=== PATIENT | female | born 1990 | race Caucasian/White ===

== ENCOUNTER 2019-01-30 10:43 | Emergency (ER) | payer OTHER ==
[2019-01-30] MEDS ORDERED: SODIUM CHLORIDE 0.9% 1,000 ML IV STA (11:21)
[2019-01-30] MEDS ORDERED: diphenhydrAMINE 50 MG/ML 1 ML VIAL IVP STA (11:21)
[2019-01-30] MEDS ORDERED: METOCLOPRAMIDE 5 MG/ML 2 ML VIAL IVP STA (11:21)
--- NOTE | 2019-01-30 11:33 | ED ---
General Adult HPI <Gene Barclay - Last Filed: 01/30/19 14:31> - General Source: patient, RN notes reviewed Mode of arrival: ambulatory Limitations: no limitations <Saul Laughlin - Last Filed: 01/30/19 14:40> - General Chief complaint: Headache Stated complaint: congestion, cough, headache, neck pain Time Seen by Provider: 01/30/19 11:02 - History of Present Illness Initial comments: 29-year-old female with a past medical history of fibromyalgia, migraines presents to the emergency department for multiple complaints. Patient states she developed a cough yesterday and today developed some sinus congestion. Patient also has a mild sore throat that started today. States that today she woke up with a headache. States it is across her frontal bone. Patient states she has a history of migraines but this does feel somewhat different. Rates her pain as a 7 out of 10. States she's also had pain that is down the middle of her neck as well as the sides of her neck and into her shoulders for the past 4 days. Denies fevers or chills. Denies nausea or vomiting. States that when she went to urgent care they were concerned about this and wanted her to be evaluated in the emergency department.Patient has no other complaints at this time including shortness of breath, chest pain, abdominal pain, nausea or vomiting, headache, or visual changes. (Saul Luaghlin) - Related Data Home Medications Medication Instructions Recorded Confirmed Ranitidine HCl [Zantac] 300 mg PO DAILY PRN 01/28/19 01/28/19 Allergies Allergy/AdvReac Type Severity Reaction Status Date / Time Pertussis Vaccines Allergy Unknown Verified 01/28/19 16:18 Childhood Review of Systems ROS Other: All systems not noted in ROS Statement are negative. <Gene Barclay - Last Filed: 01/30/19 14:31> ROS Other: All systems not noted in ROS Statement are negative. <Saul Laughlin - Last Filed: 01/30/19 14:40> ROS Statement: Those systems with pertinent positive or pertinent negative responses have been documented in the HPI. Past Medical History Past Medical History: Fibromyalgia, GERD/Reflux Additional Past Medical History / Comment(s): migraines, upset stomach when eating anything with gluten, History of Any Multi-Drug Resistant Organisms: MRSA Date of last positivie culture/infection: 2007 MDRO Source:: left arm Past Surgical History: Adenoidectomy, Orthopedic Surgery, Tonsillectomy Additional Past Surgical History / Comment(s): EGD, ORIF left ankle/later removal of hardware Past Anesthesia/Blood Transfusion Reactions: Motion Sickness Past Psychological History: Anxiety Smoking Status: Current every day smoker Past Alcohol Use History: Occasional Past Drug Use History: None Reported - Past Family History Mother Family Medical History: No Reported History <Saul Laughlin - Last Filed: 01/30/19 14:40> General Exam Limitations: no limitations General appearance: alert, in no apparent distress Head exam: Present: atraumatic, normocephalic, normal inspection Eye exam: Present: normal appearance, PERRL, EOMI. Absent: scleral icterus, conjunctival injection ENT exam: Present: normal exam, normal oropharynx, mucous membranes moist, TM's normal bilaterally, normal external ear exam Neck exam: Present: normal inspection, full ROM (full flexion/extension of that difficulty. Full lateral rotation of the neck bilaterally). Absent: tenderness, meningismus (Negative Kernig, negative Brudzinski), lymphadenopathy Respiratory exam: Present: normal lung sounds bilaterally. Absent: respiratory distress, wheezes, rales, rhonchi, stridor Cardiovascular Exam: Present: regular rate, normal rhythm, normal heart sounds. Absent: systolic murmur, diastolic murmur, rubs, gallop, clicks GI/Abdominal exam: Present: soft, normal bowel sounds. Absent: distended, tenderness, guarding, rebound, rigid Back exam: Absent: CVA tenderness (R), CVA tenderness (L) Neurological exam: Present: alert, oriented X3, CN II-XII intact, normal gait, other (GCS 15) <Saul Laughlin - Last Filed: 01/30/19 14:40> Course Vital Signs 01/30/19 01/30/19 10:59 14:07 Temperature 98.2 F 98.5 F Pulse Rate 89 74 Respiratory 22 16 Rate Blood Pressure 111/74 96/57 O2 Sat by Pulse 97 97 Oximetry Medical Decision Making - Lab Data Result diagrams: 01/30/19 11:25 01/30/19 11:25 <Gene Barclay - Last Filed: 01/30/19 14:31> - Lab Data Result diagrams: 01/30/19 11:25 01/30/19 11:25 <Saul Laughlin P - Last Filed: 01/30/19 14:40> - Medical Decision Making Patient reevaluated by myself, Dr. Barclay. Patient states she has had some discomfort in her neck for the past 3 days and headache today. Patient states headache is mild. Patient states neck discomfort is not that severe either. Patient has had some cough congestion and sore throat. No meningismus on exam. No pharyngeal erythema. No lymphadenopathy. No tenderness over the sinuses. Repeat temperature is 98.0. Patient is felt to be low suspicion for meningitis however was offered lumbar puncture for further evaluation. Patient refuses this and requests discharge home. Patient is agreeable to return if she has worsening symptoms or fevers. (Gene Barclay) Extensive evaluation was done in the emergency department. CBC was performed which shows a mild leukocytosis of 12. CMP unremarkable. Serum urinalysis does not show any obvious evidence of infection. Mild dehydration, patient was given fluids. Influenza and strep are negative. Chest x-ray shows a normal chest. CT brain shows no acute cranial abnormality. Patient was evaluated by Dr. Barclay as documented. Patient feeling better at this time will be discharged home. Likely viral syndrome given patient's cough sore throat and muscle aches and headache. (Saul Laughlin) - Lab Data Lab Results 01/30/19 01/30/19 01/30/19 Range/Units 11:25 11:25 11:25 WBC 12.0 H (3.8-10.6) k/uL RBC 4.48 (3.80-5.40) m/uL Hgb 14.4 (11.4-16.0) gm/dL Hct 41.0 (34.0-46.0) % MCV 91.4 (80.0-100.0) fL MCH 32.1 (25.0-35.0) pg MCHC 35.1 (31.0-37.0) g/dL RDW 12.7 (11.5-15.5) % Plt Count 345 (150-450) k/uL Neutrophils % 80 % Lymphocytes % 11 % Monocytes % 7 % Eosinophils % 1 % Basophils % 0 % Neutrophils # 9.6 H (1.3-7.7) k/uL Lymphocytes # 1.4 (1.0-4.8) k/uL Monocytes # 0.8 (0-1.0) k/uL Eosinophils # 0.1 (0-0.7) k/uL Basophils # 0.0 (0-0.2) k/uL PT (9.0-12.0) sec INR (<1.2) APTT (22.0-30.0) sec Sodium (137-145) mmol/L Potassium (3.5-5.1) mmol/L Chloride (98-107) mmol/L Carbon Dioxide (22-30) mmol/L Anion Gap mmol/L BUN (7-17) mg/dL Creatinine (0.52-1.04) mg/dL Est GFR (CKD-EPI)AfAm (>60 ml/min/1.73 sqM) Est GFR (CKD-EPI)NonAf (>60 ml/min/1.73 sqM) Glucose (74-99) mg/dL Plasma Lactic Acid Nic (0.7-2.0) mmol/L Calcium (8.4-10.2) mg/dL Total Bilirubin (0.2-1.3) mg/dL AST (14-36) U/L ALT (9-52) U/L Alkaline Phosphatase (38-126) U/L Total Protein (6.3-8.2) g/dL Albumin (3.5-5.0) g/dL Urine Color Urine Appearance (Clear) Urine pH (5.0-8.0) Ur Specific [place] (1.001-1.035) Urine Protein (Negative) Urine Glucose (UA) (Negative) Urine Ketones (Negative) Urine Blood (Negative) Urine Nitrite (Negative) Urine Bilirubin (Negative) Urine Urobilinogen (<2.0) mg/dL Ur Leukocyte Esterase (Negative) Urine WBC (0-5) /hpf Ur Squamous Epith Cells (0-4) /hpf Amorphous Sediment (None) /hpf Urine Bacteria (None) /hpf Urine Mucus (None) /hpf Urine HCG, Qual (Not Detectd) Influenza Type A RNA Not Detected (Not Detectd) Influenza Type B (PCR) Not Detected (Not Detectd) Group A Strep Rapid Negative (Negative) 01/30/19 01/30/19 01/30/19 Range/Units 11:25 11:25 11:25 WBC (3.8-10.6) k/uL RBC (3.80-5.40) m/uL Hgb (11.4-16.0) gm/dL Hct (34.0-46.0) % MCV (80.0-100.0) fL MCH (25.0-35.0) pg MCHC (31.0-37.0) g/dL RDW (11.5-15.5) % Plt Count (150-450) k/uL Neutrophils % % Lymphocytes % % Monocytes % % Eosinophils % % Basophils % % Neutrophils # (1.3-7.7) k/uL Lymphocytes # (1.0-4.8) k/uL Monocytes # (0-1.0) k/uL Eosinophils # (0-0.7) k/uL Basophils # (0-0.2) k/uL PT 11.2 (9.0-12.0) sec INR 1.1 (<1.2) APTT 24.5 (22.0-30.0) sec Sodium 139 (137-145) mmol/L Potassium 4.6 (3.5-5.1) mmol/L Chloride 108 H (98-107) mmol/L Carbon Dioxide 21 L (22-30) mmol/L Anion Gap 10 mmol/L BUN 13 (7-17) mg/dL Creatinine 0.62 (0.52-1.04) mg/dL Est GFR (CKD-EPI)AfAm >90 (>60 ml/min/1.73 sqM) Est GFR (CKD-EPI)NonAf >90 (>60 ml/min/1.73 sqM) Glucose 96 (74-99) mg/dL Plasma Lactic Acid Nic 0.6 L (0.7-2.0) mmol/L Calcium 9.7 (8.4-10.2) mg/dL Total Bilirubin 0.6 (0.2-1.3) mg/dL AST 23 (14-36) U/L ALT 22 (9-52) U/L Alkaline Phosphatase 116 (38-126) U/L Total Protein 7.6 (6.3-8.2) g/dL Albumin 4.5 (3.5-5.0) g/dL Urine Color Urine Appearance (Clear) Urine pH (5.0-8.0) Ur Specific [place] (1.001-1.035) Urine Protein (Negative) Urine Glucose (UA) (Negative) Urine Ketones (Negative) Urine Blood (Negative) Urine Nitrite (Negative) Urine Bilirubin (Negative) Urine Urobilinogen (<2.0) mg/dL Ur Leukocyte Esterase (Negative) Urine WBC (0-5) /hpf Ur Squamous Epith Cells (0-4) /hpf Amorphous Sediment (None) /hpf Urine Bacteria (None) /hpf Urine Mucus (None) /hpf Urine HCG, Qual (Not Detectd) Influenza Type A RNA (Not Detectd) Influenza Type B (PCR) (Not Detectd) Group A Strep Rapid (Negative) 01/30/19 01/30/19 Range/Units 11:30 11:30 WBC (3.8-10.6) k/uL RBC (3.80-5.40) m/uL Hgb (11.4-16.0) gm/dL Hct (34.0-46.0) % MCV (80.0-100.0) fL MCH (25.0-35.0) pg MCHC (31.0-37.0) g/dL RDW (11.5-15.5) % Plt Count (150-450) k/uL Neutrophils % % Lymphocytes % % Monocytes % % Eosinophils % % Basophils % % Neutrophils # (1.3-7.7) k/uL Lymphocytes # (1.0-4.8) k/uL Monocytes # (0-1.0) k/uL Eosinophils # (0-0.7) k/uL Basophils # (0-0.2) k/uL PT (9.0-12.0) sec INR (<1.2) APTT (22.0-30.0) sec Sodium (137-145) mmol/L Potassium (3.5-5.1) mmol/L Chloride (98-107) mmol/L Carbon Dioxide (22-30) mmol/L Anion Gap mmol/L BUN (7-17) mg/dL Creatinine (0.52-1.04) mg/dL Est GFR (CKD-EPI)AfAm (>60 ml/min/1.73 sqM) Est GFR (CKD-EPI)NonAf (>60 ml/min/1.73 sqM) Glucose (74-99) mg/dL Plasma Lactic Acid Nic (0.7-2.0) mmol/L Calcium (8.4-10.2) mg/dL Total Bilirubin (0.2-1.3) mg/dL AST (14-36) U/L ALT (9-52) U/L Alkaline Phosphatase (38-126) U/L Total Protein (6.3-8.2) g/dL Albumin (3.5-5.0) g/dL Urine Color Yellow Urine Appearance Cloudy H (Clear) Urine pH 5.0 (5.0-8.0) Ur Specific [place] 1.028 (1.001-1.035) Urine Protein Trace H (Negative) Urine Glucose (UA) Negative (Negative) Urine Ketones Trace H (Negative) Urine Blood Small H (Negative) Urine Nitrite Negative (Negative) Urine Bilirubin Negative (Negative) Urine Urobilinogen <2.0 (<2.0) mg/dL Ur Leukocyte Esterase Trace H (Negative) Urine WBC 4 (0-5) /hpf Ur Squamous Epith Cells 4 (0-4) /hpf Amorphous Sediment Few H (None) /hpf Urine Bacteria Occasional H (None) /hpf Urine Mucus Few H (None) /hpf Urine HCG, Qual Not Detected (Not Detectd) Influenza Type A RNA (Not Detectd) Influenza Type B (PCR) (Not Detectd) Group A Strep Rapid (Negative) Disposition <Gene Barclay - Last Filed: 01/30/19 14:31> Is patient prescribed a controlled substance at d/c from ED?: No Time of Disposition: 14:40 <Saul Laughlin - Last Filed: 01/30/19 14:40> Clinical Impression: Headache, Viral syndrome Disposition: HOME SELF-CARE Condition: Good Instructions (If sedation given, give patient instructions): Acute Headache (ED) Additional Instructions: Please follow up with primary care in 1-2 days. Return to the emergency de partment if you have any worsening symptoms. Referrals: Ismael Rodríguez MD [Primary Care Provider] - 1-2 days
[2019-01-30 11:55] LABS: ALT 22 U/L (9-52); AST 23 U/L (14-36); African American GFR (CKD) >90 (>60 ml/min/1.73 sqM); Albumin 4.5 g/dL (3.5-5.0); Alkaline Phosphatase 116 U/L (38-126); Anion Gap 10 mmol/L; Blood Urea Nitrogen 13 mg/dL (7-17); Calcium 9.7 mg/dL (8.4-10.2); Carbon Dioxide 21 mmol/L (22-30); Chloride 108 mmol/L (98-107); Glucose 96 mg/dL (74-99); Potassium 4.6 mmol/L (3.5-5.1); Sodium 139 mmol/L (137-145); Total Bilirubin 0.6 mg/dL (0.2-1.3); Total Protein 7.6 g/dL (6.3-8.2)
[2019-01-30 11:56] LABS: INR 1.1 (<1.2); Partial Thromboplastin Time 24.5 sec (22.0-30.0); Prothrombin Time 11.2 sec (9.0-12.0)
[2019-01-30 11:58] LABS: Basophils % (A) 0 %; Eosinophils # (A) 0.1 k/uL (0-0.7); Eosinophils % (A) 1 %; HGB 14.4 gm/dL (11.4-16.0); Lymphocytes # (A) 1.4 k/uL (1.0-4.8); Lymphocytes % (A) 11 %; MCH 32.1 pg (25.0-35.0); MCHC 35.1 g/dL (31.0-37.0); MCV 91.4 fL (80.0-100.0); Monocytes # (A) 0.8 k/uL (0-1.0); Monocytes % (A) 7 %; Neutrophils # (A) 9.6 k/uL (1.3-7.7); Neutrophils % (A) 80 %; Platelet Count 345 k/uL (150-450); RBC 4.48 m/uL (3.80-5.40); RDW 12.7 % (11.5-15.5)
[2019-01-30 11:59] LABS: Amorphous Sediment,Urine Few /hpf; Appearance,Urine Cloudy (Clear); Bacteria,Urine Occasional /hpf; Bilirubin,Urine Negative (Negative); Blood,Urine Small (Negative); Color,Urine Yellow; Glucose,Urine (UA) Negative (Negative); Ketones,Urine Trace (Negative); Leukocyte Esterase,Urine Trace (Negative); Mucus,Urine Few /hpf; Nitrite,Urine Negative (Negative); Protein,Urine Trace (Negative); Specific Gravity,Urine 1.028 (1.001-1.035); Squamous Epithelial Cell,Urine 4 /hpf (0-4); Urobilinogen,Urine <2.0 mg/dL (<2.0); WBC,Urine 4 /hpf (0-5)
--- NOTE | 2019-01-30 12:42 | CT ---
EXAMINATION TYPE: CT brain wo con DATE OF EXAM: 01/30/2019 COMPARISON: NONE HISTORY: TENA, congestion, cough, neck pain CT DLP: 1062.4 mGycm Automated exposure control for dose reduction was used. FINDINGS: Central structures are midline. There is no evidence of hydrocephalus. No acute focal lesion, mass ef fect or midline shift is seen. I do not see evidence of intracranial blood. Visualized portions of th e paranasal sinuses and mastoids are clear. The bony calvarium is intact. IMPRESSION: NO ACUTE INTRACRANIAL ABNORMALITY.
--- NOTE | 2019-01-30 13:31 | XR ---
EXAMINATION TYPE: XR chest 2V DATE OF EXAM ORDERED: 01/30/2019 HISTORY: cough. REFERENCE: None. FINDINGS: The lungs are clear. Pleural spaces are clear. Heart size is normal. IMPRESSION: NORMAL CHEST.
[2019-01-30 14:08] VITALS: BP 96/57; PULSE 74; RESP 16; TEMP 98.5
== END 2019-01-30 14:50 | disposition home or self-care (01) ==
LOC: EC 10:43
DX: B34.9 Viral infection, unspecified (principal); E86.0 Dehydration; M54.2 Cervicalgia; F17.200 Nicotine dependence, unspecified, uncomplicated; Z86.14 Personal history of Methicillin resistant Staphylococcus aureus infection; Z86.69 Personal history of other diseases of the nervous system and sense organs; Z53.29 Procedure and treatment not carried out because of patient's decision for other reasons; Z88.7 Allergy status to serum and vaccine
CPT/HCPCS: 36415; 80053; 83605; 85025; 85610; 85730; 81001; 81025; 87081; 87430; 87502; 71046; 70450; 99284; 96374; 96375; 96361 ×2; J1200; J2765

== ENCOUNTER 2019-02-02 08:41 | Day surgery (SDC) | payer OTHER ==
[2019-01-28 16:27] VITALS: BMI 30.6
[~2019-02-02 08:41] MED LIST: LACTATED RINGERS 1,000 ML IV SCH; LIDOCAINE 1% 20 ML VIAL (10MG/ML) FOR IV START INTRADERMA PRN
[2019-02-02] MEDS ORDERED: GLYCOPYRROLATE 0.2 MG/ML 2 ML VIAL ONE (09:21)
[2019-02-02] MEDS ORDERED: MIDAZOLAM 2 MG/2 ML VIAL ONE (09:21)
[2019-02-02] MEDS ORDERED: LIDOCAINE 1% INJ 10MG/ML (20 ML MDV) ONE (09:21)
[2019-02-02] MEDS ORDERED: PROPOFOL 10 MG/ML 20 ML VIAL IV ONE (09:21)
[2019-02-02 09:23] VITALS: TEMP 97
--- NOTE | 2019-02-02 09:48 | P.PCN ---
Date of Procedure: 02/02/19 Description of Procedure: BRIEF HISTORY: Patient is a 29-year-old, pleasant, female with GERD. She presents for outpatient EGD for further evaluation. Currently the patient is on ranitidine. She reports a prior history of esophageal tear. PROCEDURE PERFORMED: Esophagogastroduodenoscopy with biopsy. PREOPERATIVE DIAGNOSIS: GERD. ESTIMATED BLOOD LOSS: Minimal. IV sedation per anesthesia. PROCEDURE: After informed consent was obtained, the patient was brought into the endoscopy unit. IV sedation was administered by Anesthesia under continuous monitoring. Initially the Olympus GIF-190 video endoscope was inserted into the mouth. Esophagus intubated without any difficulty. It was gradually advanced into the stomach and duodenum and carefully examined. The bulb and the second part of the duodenum appeared normal, with biopsy. The scope at this time was withdrawn to the stomach, adequately insufflated with air, and upon careful examination, mucosa of the antrum, body, cardia and the fundus appeared normal except for some mild scattered erythema in the antrum and body suggestive of mild gastritis with biopsies. The scope was then withdrawn into the esophagus. The GE junction was located at 37 cm from the incisors, biopsied. The esophagus appeared normal. There were no erosions or ulcerations seen and the patient tolerated the procedure well. IMPRESSION: 1. Mild gastritis antrum and body, biopsied. 2. Biopsies of the duodenum and GE junction. RECOMMENDATIONS: The findings of this examination were discussed with the patient and her grandmother. Await pathology from biopsies. Continue ranitidine therapy.
[2019-02-02 10:10] VITALS: BP 112/67; PULSE 67; RESP 18
== END 2019-02-02 10:31 | disposition home or self-care (01) ==
LOC: ORWHC2ENDO 08:41
PROVIDERS: ATTEND Internal Medicine
DX: K21.9 Gastro-esophageal reflux disease without esophagitis (principal); K29.70 Gastritis, unspecified, without bleeding; B96.81 Helicobacter pylori [H. pylori] as the cause of diseases classified elsewhere; Z72.0 Tobacco use; Z88.7 Allergy status to serum and vaccine; Z79.899 Other long term (current) drug therapy
CPT/HCPCS: 43239; 81025; 88305; 88342; J2250; J2001; J2704

== ENCOUNTER → 2019-03-04 | Outpatient (CLI) | payer OTHER ==
[2019-03-04 11:42] VITALS: BP 104/70; PULSE 62; RESP 16; TEMP 98.2; BMI 29.9
--- NOTE | 2019-03-04 12:22 | P.GSHP ---
History of Present Illness H&P Date: 03/04/19 Chief Complaint: breast pain and yeast infection Ingrid is a 29-year-old white female who presents for breast evaluation. At times she has pain in her breast however her breasts are extremely large 36G and she also has pain in her back. The patient denies any nipple discharge or skin changes. The tenderness is related to jostling of the breast, it is not cyclical in nature. It does not radiate. She is not complaining of any nipple discharge. The patient gets shoulder divots from her bra secondary to the weight of her breast. She also complains of pain in her back it occurs in the mid thoracic region throughout her lower back. The patient states that she started wearing training process when she was 6 years old. By the time she was in the scleral she had a 32 mL, and in ninth grade she had a 34F. Her maternity bra was at 38J. She has not noted any lumps or masses in her breasts. She has not had a mammogram and ultrasound performed. She drinks 2 cups of coffee/day. She does not eat much chocolate. She smokes 1/2 PPD. Family history: maternal grandmother: Breast cancer maternal grandfather: cancer? type paternal grandfather: lymphoma paternal grandmother: cancer ?type Hormonal history: Menarche: 7 , first at 27, breast fed: yes periods regular BCP: 2 years hormones: none Past surgical history: 1. left ankle 2. tonsil and adenoids Medical History: H pylori Social History: smoke: 1/2 PPD for 16 years alcohol: 3 times/week drugs: none - Constitutional Constitutional: Reports sweats - EENT Eyes: denies blurred vision, denies pain Ears: deny: decreased hearing, tinnitus Ears, nose, mouth and throat: Denies headache, Denies sore throat - Breasts Breasts: bilateral: as per HPI - Cardiovascular Cardiovascular: Denies chest pain, Denies shortness of breath - Respiratory Respiratory: Denies cough, Denies 7 - Gastrointestinal Gastrointestinal: Denies abdominal pain, Denies diarrhea, Denies nausea, Denies vomiting - Genitourinary (Female) Genitourinary: Denies dysuria, Denies hematuria - Menstruation Menstruation: Reports period normal - Musculoskeletal Comment: gluetal pain Musculoskeletal: Reports myalgias - Integumentary Integumentary: Denies pruritus, Denies rash - Neurological Comment: sciatic pain - Psychiatric Psychiatric: Reports anxiety - Endocrine Endocrine: Reports weight change - Hematologic/Lymphatic Comment: none - Allergic/Immunologic Allergic/Immunologic: Reports as per HPI Past Medical History Past Medical History: Fibromyalgia, GERD/Reflux Additional Past Medical History / Comment(s): migraines, upset stomach when eating anything with gluten, History of Any Multi-Drug Resistant Organisms: MRSA Date of last positivie culture/infection: 2007 MDRO Source:: left arm Past Surgical History: Adenoidectomy, Orthopedic Surgery, Tonsillectomy Additional Past Surgical History / Comment(s): EGD, ORIF left ankle/later removal of hardware Past Anesthesia/Blood Transfusion Reactions: Motion Sickness Past Psychological History: Anxiety Smoking Status: Current every day smoker Past Alcohol Use History: Occasional Additional Past Alcohol Use History / Comment(s): smokes 1/2 PPD , has smoked for 15 yrs Past Drug Use History: None Reported - Past Family History Mother Family Medical History: No Reported History Medications and Allergies Home Medications Medication Instructions Recorded Confirmed Type Omeprazole 40 mg PO DAILY 03/04/19 03/04/19 History Allergies Allergy/AdvReac Type Severity Reaction Status Date / Time Pertussis Vaccines Allergy Unknown Verified 03/04/19 11:42 Childhood Surgical - Exam Vital Signs Temp Pulse Resp BP Pulse Ox 98.2 F 62 16 104/70 93 L 03/04/19 11:37 03/04/19 11:37 03/04/19 11:37 03/04/19 11:37 03/04/19 11:37 BMI 30 - General well developed, well nourished, no distress - Eyes normal ocular movement - ENT no hearing loss, no congestion - Neck no masses, trachea midline, no lymphadectomy - Respiratory normal respiratory effort, clear to auscultation - Cardiovascular Rhythm: regular Heart Sounds: normal: S1, S2 - Abdomen Abdomen: soft, non tender, no guarding, no rigid, no rebound - Integumentary normal turgor multiple tattoos - Neurologic no disoriented, no combative - Musculoskeletal normal gait, normal posture - Psychiatric oriented to time, oriented to person, oriented to place, speech is normal, memory intact Breast examination: 36G Right breast: Multi-positional exam fibrocystic changes, no discrete dominant masses or nodules of concern Right axilla: No adenopathy of concern Left breast: Multi-positional exam fibrocystic changes, no discrete dominant masses or nodules of concern Left axilla: No adenopathy of concern Assessment and Plan Assessment: Impression: 1. Macromastia 2. Intermittent mastodynia 3. Back pain 4. Shoulder notching 5. Nicotine dependence 6. Family history of cancer 7. Recent treatment for H. pylori Plan: 1. bilateral mammogram 2. counselled to stop smoking 3. Recommend good support bra for back pain 4. We will consider referral to plastic surgery if mammogram is normal 5. Intermittent breast discomfort related to fibrocystic disease can be helped by stopping smoking and avoiding caffeine we have discussed this and the patient will consider cutting back. 6. Patient will consider weight loss related to possibility of having breast surgery reduction CC: Becka DUMONT, Dr. Rodríguez
== END | disposition home or self-care (01) ==
LOC: WWCWWP 11:02
PROVIDERS: ATTEND Surgery
DX: Z53.9 Procedure and treatment not carried out, unspecified reason (principal)

== ENCOUNTER → 2019-04-02 | Outpatient (CLI) | payer OTHER ==
--- NOTE | 2019-04-02 11:53 | MM ---
Reason for exam: screening (asymptomatic). Baseline mammogram. History: Family history of breast cancer in maternal grandmother at age 48. Physical Findings: Nurse did not find any significant physical abnormalities on exam. MG Screening Mammo w CAD Bilateral CC and MLO view(s) were taken. The breast tissue is extremely dense which could obscure a lesion on mammography. There is no discrete abnormality. These results were verbally communicated with the patient and result sheet given to the patient on 04/02/19. ASSESSMENT: Negative, BI-RAD 1 RECOMMENDATION: Routine screening mammogram of both breasts at age 38.
== END ==
LOC: RADMAMWWP 10:58
PROVIDERS: ATTEND Surgery
DX: Z12.31 Encounter for screening mammogram for malignant neoplasm of breast (principal)
CPT/HCPCS: 77067

== ENCOUNTER → 2020-01-14 | Outpatient (CLI) | payer OTHER ==
--- NOTE | 2020-01-14 12:05 | NM ---
EXAMINATION TYPE: NM bone 3 phase DATE OF EXAM: 01/14/2020 COMPARISON: No plain film supplied for correlation. HISTORY: Right foot pain, M 79.671 Triple phase bone scintigraphy was performed following the injection of 24.0 mCi Tc 99m MDP. Immedia te images and 4 hours post injection images acquired. FINDINGS: There is increased blood flow and blood pool activity at the right midfoot. Delayed imaging also show s abnormal activity at this level. IMPRESSION: Correlate for history of trauma, possible infection involving the right midfoot. Correlate with addit ional imaging.
== END | disposition home or self-care (01) ==
LOC: RADNMMAIN 07:14
PROVIDERS: ATTEND Family Medicine
DX: M79.671 Pain in right foot (principal)
CPT/HCPCS: 78315; A9503

== ENCOUNTER 2020-12-03 12:10 | Emergency (ER) | payer OTHER ==
[2020-12-03 12:14] VITALS: RESP 16
[2020-12-03] MEDS ORDERED: SODIUM CHLORIDE 0.9% 1,000 ML IV STA (12:34)
[2020-12-03] MEDS ORDERED: MAG HYDROX/AL HYDROX/SIMETH 30 ML, HYOSCYAMINE ELIXIR 10 ML, LIDOCAINE VISCOUS 2% 10 ML PO STA ×3 (12:35)
--- NOTE | 2020-12-03 12:37 | ED ---
General Adult HPI - General Chief complaint: Abdominal Pain Stated complaint: vomiting blood Time Seen by Provider: 12/03/20 12:15 Source: patient Mode of arrival: ambulatory Limitations: no limitations - History of Present Illness Initial comments: Dictation was produced using [employer] dictation software. please excuse any grammatical, word or spelling errors. Chief Complaint: 30-year-old female presents with epigastric pain History of Present Illness: 30-year-old female she has past medical history of gastritis and Victoria-Anders tear. She presents to the emergency Department with emesis and epigastric pain. She woke this morning with the symptoms. Patient states several months ago she had a upper endoscopy that showed a tear in her esophagus and gastritis. She was prescribed omeprazole. She has had omeprazole in several weeks. Last night she had 5 ounces of whiskey and immediately began to feel some epigastric pain. She had multiple bouts of emesis. States that she noticed that some of her emesis was brown. She is concerned that perhaps the brown coloration reflected GI bleed. She feels dehydrated. She was not able to make it to work today and states that she would like a work note to confirm that she came to get medical evaluation. The ROS documented in this emergency department record has been reviewed and confirmed by me. Those systems with pertinent positive or negative responses have been documented in the HPI. All other systems are other negative and/or noncontributory. PHYSICAL EXAM: General Impression: Alert and oriented x3, not in acute distress HEENT: Normocephalic atraumatic, extra-ocular movements intact, pupils equal and reactive to light bilaterally, mucous membranes moist. Cardiovascular: Heart regular rate and rhythm Chest: Able to complete full sentences, no retractions, no tachypnea Abdomen: abdomen soft, non-tender, non-distended, no organomegaly Musculoskeletal: Pulses present and equal in all extremities, no peripheral edema Motor: no focal deficits noted Neurological: CN II-XII grossly intact, no focal motor or sensory deficits noted Skin: Intact with no visualized rashes Psych: Normal affect and mood ED course: 30-year-old well-appearing female presents emergency department for epigastric pain and concerns of bloody emesis. vital signs upon arrival are within acceptable limits per she describes her emesis as watery and brown. She denies that it was black or blood. Return evaluation obtained. CBC, coag panel, metabolic panel is unremarkable. Urine hCG is negative. Chest x-ray and acute abdominal series x-ray shows no acute processes. Patient reevaluated at bedside at 1:30 PM found to be in stable medical condition. She states that the GI cocktail dramatically improved her symptoms. Clinical presentation consistent with gastritis. Patient given prescription for Protonix. She is told to follow-up with gastroenterology on an outpatient basis. Gastritis precautions were explained to patient. EKG interpretation: Ventricular rate 74, normal sinus rhythm, VT interval 126, QRS 94, QTC 437. No VT prolongation, no QTC prolongation, no ST or T-wave changes noted. Overall, this EKG is unremarkable - Related Data Home Medications Medication Instructions Recorded Confirmed Omeprazole 40 mg PO DAILY 03/04/19 03/04/19 Previous Rx's Medication Instructions Recorded Omeprazole 40 mg PO DAILY #24 capsule. 12/03/20 Allergies Allergy/AdvReac Type Severity Reaction Status Date / Time Pertussis Vaccines Allergy Unknown Verified 12/03/20 12:14 Childhood Review of Systems ROS Statement: Those systems with pertinent positive or pertinent negative responses have been documented in the HPI. ROS Other: All systems not noted in ROS Statement are negative. Past Medical History Past Medical History: Fibromyalgia, GERD/Reflux Additional Past Medical History / Comment(s): migraines, upset stomach when eating anything with gluten, History of Any Multi-Drug Resistant Organisms: MRSA Date of last positivie culture/infection: 2007 MDRO Source:: left arm Past Surgical History: Adenoidectomy, Orthopedic Surgery, Tonsillectomy Additional Past Surgical History / Comment(s): EGD, ORIF left ankle/later removal of hardware Past Anesthesia/Blood Transfusion Reactions: Motion Sickness Past Psychological History: Anxiety Smoking Status: Current every day smoker Past Alcohol Use History: Occasional Past Drug Use History: None Reported - Past Family History Mother Family Medical History: No Reported History General Exam Limitations: no limitations Course Vital Signs 12/03/20 12:12 Temperature 98.2 F Pulse Rate 97 Respiratory 16 Rate O2 Sat by Pulse 99 Oximetry Medical Decision Making - Lab Data Result diagrams: 12/03/20 12:30 12/03/20 12:30 Lab Results 12/03/20 12/03/20 12/03/20 Range/Units 12:30 12:30 12:30 WBC 12.4 H (3.8-10.6) k/uL RBC 4.57 (3.80-5.40) m/uL Hgb 15.1 (11.4-16.0) gm/dL Hct 43.7 (34.0-46.0) % MCV 95.7 (80.0-100.0) fL MCH 33.0 (25.0-35.0) pg MCHC 34.5 (31.0-37.0) g/dL RDW 12.3 (11.5-15.5) % Plt Count 331 (150-450) k/uL MPV 7.4 Neutrophils % 84 % Lymphocytes % 12 % Monocytes % 3 % Eosinophils % 0 % Basophils % 0 % Neutrophils # 10.3 H (1.3-7.7) k/uL Lymphocytes # 1.5 (1.0-4.8) k/uL Monocytes # 0.4 (0-1.0) k/uL Eosinophils # 0.1 (0-0.7) k/uL Basophils # 0.0 (0-0.2) k/uL PT 11.4 (9.0-12.0) sec INR 1.1 (<1.2) APTT 23.4 (22.0-30.0) sec Sodium (137-145) mmol/L Potassium (3.5-5.1) mmol/L Chloride (98-107) mmol/L Carbon Dioxide (22-30) mmol/L Anion Gap mmol/L BUN (7-17) mg/dL Creatinine (0.52-1.04) mg/dL Est GFR (CKD-EPI)AfAm (>60 ml/min/1.73 sqM) Est GFR (CKD-EPI)NonAf (>60 ml/min/1.73 sqM) Glucose (74-99) mg/dL Calcium (8.4-10.2) mg/dL Total Bilirubin (0.2-1.3) mg/dL AST (14-36) U/L ALT (4-34) U/L Alkaline Phosphatase (38-126) U/L Total Protein (6.3-8.2) g/dL Albumin (3.5-5.0) g/dL Urine HCG, Qual Not Detected (Not Detectd) Blood Type Blood Type Confirm Blood Type Recheck Bld Type Recheck Status Antibody Screen Spec Expiration Date 12/03/20 12/03/20 12/03/20 Range/Units 12:30 12:30 12:30 WBC (3.8-10.6) k/uL RBC (3.80-5.40) m/uL Hgb (11.4-16.0) gm/dL Hct (34.0-46.0) % MCV (80.0-100.0) fL MCH (25.0-35.0) pg MCHC (31.0-37.0) g/dL RDW (11.5-15.5) % Plt Count (150-450) k/uL MPV Neutrophils % % Lymphocytes % % Monocytes % % Eosinophils % % Basophils % % Neutrophils # (1.3-7.7) k/uL Lymphocytes # (1.0-4.8) k/uL Monocytes # (0-1.0) k/uL Eosinophils # (0-0.7) k/uL Basophils # (0-0.2) k/uL PT (9.0-12.0) sec INR (<1.2) APTT (22.0-30.0) sec Sodium 138 (137-145) mmol/L Potassium 4.3 (3.5-5.1) mmol/L Chloride 106 (98-107) mmol/L Carbon Dioxide 21 L (22-30) mmol/L Anion Gap 11 mmol/L BUN 17 (7-17) mg/dL Creatinine 0.58 (0.52-1.04) mg/dL Est GFR (CKD-EPI)AfAm >90 (>60 ml/min/1.73 sqM) Est GFR (CKD-EPI)NonAf >90 (>60 ml/min/1.73 sqM) Glucose 98 (74-99) mg/dL Calcium 10.1 (8.4-10.2) mg/dL Total Bilirubin 0.5 (0.2-1.3) mg/dL AST 24 (14-36) U/L ALT 18 (4-34) U/L Alkaline Phosphatase 115 (38-126) U/L Total Protein 7.7 (6.3-8.2) g/dL Albumin 4.8 (3.5-5.0) g/dL Urine HCG, Qual (Not Detectd) Blood Type O Positive Blood Type Confirm O Positive Blood Type Recheck No Previous Record Bld Type Recheck Status CABO Indicated Antibody Screen NEGATIVE Spec Expiration Date 12/06/20202329 Disposition Clinical Impression: Gastritis Disposition: HOME SELF-CARE Condition: Good Instructions (If sedation given, give patient instructions): Gastritis (ED) Prescriptions: Omeprazole 40 mg PO DAILY #24 capsule.dr Is patient prescribed a controlled substance at d/c from ED?: No Referrals: Ismael Rodríguez MD [Primary Care Provider] - 1-2 days Vikas Martínez MD [STAFF PHYSICIAN] - 1-2 days
[2020-12-03 12:45] LABS: Basophils % (A) 0 %; Eosinophils # (A) 0.1 k/uL (0-0.7); Eosinophils % (A) 0 %; HCT 43.7 % (34.0-46.0); HGB 15.1 gm/dL (11.4-16.0); Lymphocytes # (A) 1.5 k/uL (1.0-4.8); Lymphocytes % (A) 12 %; MCHC 34.5 g/dL (31.0-37.0); MCV 95.7 fL (80.0-100.0); Mean Platelet Volume 7.4; Monocytes # (A) 0.4 k/uL (0-1.0); Monocytes % (A) 3 %; Neutrophils # (A) 10.3 k/uL (1.3-7.7); Neutrophils % (A) 84 %; Platelet Count 331 k/uL (150-450); RBC 4.57 m/uL (3.80-5.40); RDW 12.3 % (11.5-15.5); WBC 12.4 k/uL (3.8-10.6)
[2020-12-03 12:54] LABS: ALT 18 U/L (4-34); AST 24 U/L (14-36); African American GFR (CKD) >90 (>60 ml/min/1.73 sqM); Albumin 4.8 g/dL (3.5-5.0); Alkaline Phosphatase 115 U/L (38-126); Anion Gap 11 mmol/L; Blood Urea Nitrogen 17 mg/dL (7-17); Calcium 10.1 mg/dL (8.4-10.2); Carbon Dioxide 21 mmol/L (22-30); Chloride 106 mmol/L (98-107); Glucose 98 mg/dL (74-99); Non-African American GFR(CKD) >90 (>60 ml/min/1.73 sqM); Potassium 4.3 mmol/L (3.5-5.1); Sodium 138 mmol/L (137-145); Total Bilirubin 0.5 mg/dL (0.2-1.3); Total Protein 7.7 g/dL (6.3-8.2)
[2020-12-03 13:01] LABS: INR 1.1 (<1.2); Partial Thromboplastin Time 23.4 sec (22.0-30.0); Prothrombin Time 11.4 sec (9.0-12.0)
--- NOTE | 2020-12-03 13:22 | XR ---
EXAMINATION TYPE: XR abdomen acute w cxr DATE OF EXAM: 12/03/2020 COMPARISON: NONE HISTORY: Pain TECHNIQUE: Supine, upright, and left side down lateral decubitus views of the abdomen are obtained. FINDINGS: The lungs are clear. Heart size normal. No pleural effusion or pneumothorax. No focal pneum onia. Bowel gas pattern nonspecific with no obstruction. Osseous structures intact. Calcifications in the p angela are likely vascular. IMPRESSION: 1. No acute intrathoracic process. 2. Nonspecific abdomen with no obstruction.
[2020-12-03 13:38] VITALS: BP 114/76; PULSE 74; TEMP 98.1
== END 2020-12-03 13:35 | disposition home or self-care (01) ==
LOC: EC 12:10
DX: K29.70 Gastritis, unspecified, without bleeding (principal); K21.9 Gastro-esophageal reflux disease without esophagitis; F17.200 Nicotine dependence, unspecified, uncomplicated; Z79.899 Other long term (current) drug therapy
CPT/HCPCS: 36415; 74022; 80053; 81025; 85025; 85610; 85730; 86850; 86900; 86901; 93005; 96360; 99284

== ENCOUNTER → 2021-04-20 | Day surgery (SDC) | payer OTHER ==
[2021-04-18 09:28] VITALS: BMI 30.1
[~2021-04-20] MED LIST changes: +LACTATED RINGERS 1,000 ML IV ONE; -LIDOCAINE 1% 20 ML VIAL (10MG/ML) FOR IV START INTRADERMA PRN; +LIDOCAINE 1% INJ 10MG/ML (20 ML MDV) ONE; +PROPOFOL 10 MG/ML 20 ML VIAL IV ONE
[2021-04-20 08:01] VITALS: TEMP 97.8
--- NOTE | 2021-04-20 08:37 | P.PCN ---
Date of Procedure: 04/20/21 Procedure(s) Performed: BRIEF HISTORY: Patient is a 31-year-old, pleasant, white female scheduled for an upper endoscopy as a part of evaluation of long-standing history of GERD of almost 15 years duration. She has been on omeprazole 40 mg daily but lately her symptoms have been progressively getting worse been taking it twice daily. She is scheduled for an upper endoscopy to rule out complicated reflux disease. PROCEDURE PERFORMED: Esophagogastroduodenoscopy with biopsy PREOPERATIVE DIAGNOSIS: Long-standing history of GERD. IV sedation per anesthesia. PROCEDURE: After informed consent was obtained, the patient was brought into the endoscopy unit. IV sedation was administered by Anesthesia under continuous monitoring. Initially the Olympus GIF-140 video endoscope was inserted into the mouth. Esophagus intubated without any difficulty. It was gradually advanced into the stomach and duodenum and carefully examined. The bulb and the second part of the duodenum appeared normal. Biopsies were done from the duodenum to rule out celiac disease. Had mild erythema and biopsies were done from this area. The The scope at this time was withdrawn to the stomach, adequately insufflated with air, and upon careful examination, mucosa of the antrum, body, cardia and the fundus appeared normal. There was moderate amount of retained food in the stomach suggestive of gastroparesis. No evidence of gastric outlet obstruction. The scope was then withdrawn into the esophagus. The GE junction was located at 37 cm from the incisors. There were 2 superficial erosions at the GE junction consistent with LA grade a reflux esophagitis. The rest of the esophagus appeared normal. There were no ulcerations seen and the patient tolerated the procedure well. IMPRESSION: 1. Moderate amount of retained food in the stomach suggestive of gastroparesis. 2. LA grade A reflux esophagitis. RECOMMENDATIONS: The findings of this examination were discussed with the patient as well as a family. She was advised to continue with omeprazole 40 mg twice daily and start small frequent meals. She will be seen in office in 3 months..
[2021-04-20 08:56] VITALS: PULSE 67
[2021-04-20 09:05] VITALS: BP 101/64; RESP 16
== END | disposition home or self-care (01) ==
LOC: ORWHC2ENDO 07:28
PROVIDERS: ATTEND Internal Medicine Gastroenterology
DX: K21.00 Gastro-esophageal reflux disease with esophagitis, without bleeding (principal); K21.9 Gastro-esophageal reflux disease without esophagitis
CPT/HCPCS: 43239; 81025; 88305; J2001; J2704

== ENCOUNTER → 2021-07-17 | Outpatient (CLI) | payer OTHER ==
--- NOTE | 2021-07-17 10:48 | US ---
EXAMINATION TYPE: US abdomen complete DATE OF EXAM: 07/17/2021 COMPARISON: NONE CLINICAL HISTORY: 31-year-old female R10.11 RUQ PAIN. Pain. TECHNIQUE: Multiple sonographic images of the abdomen are obtained. FINDINGS: EXAM MEASUREMENTS: Liver Length: 13.9 cm Gallbladder Wall: 0.1 cm CBD: 0.3 cm Spleen: 8.6 cm Right Kidney: 10.5 x 4.9 x 3.8 cm Left Kidney: 10.4 x 4.4 x 4.8 cm Pancreas: Tail obscured by overlying bowel gas Liver: Normal homogeneous appearance. No focal lesion. Gallbladder: No abnormal distention, wall thickening, pericholecystic fluid, or shadowing calculi. Evidence for sonographic De La Cruz's sign: neg CBD: wnl, limited visualization Spleen: wnl Right Kidney: No hydronephrosis or masses seen Left Kidney: No hydronephrosis or masses seen Upper IVC: wnl Abd Aorta: No AAA seen IMPRESSION: Suboptimal visualization of the pancreatic tail. Otherwise, unremarkable sonographic examination of t he abdomen.
== END | disposition home or self-care (01) ==
LOC: RADUSWWP 08:25
PROVIDERS: ATTEND Internal Medicine Gastroenterology
DX: R10.11 Right upper quadrant pain (principal)
CPT/HCPCS: 76700

== ENCOUNTER 2022-02-21 08:54 | Emergency (ER) | payer OTHER ==
[2022-02-21] MEDS ORDERED: KETOROLAC 15 MG/ML 1 ML VIAL IVP STA (09:24)
[2022-02-21 09:35] LABS: Basophils % (A) 0 %; Eosinophils # (A) 0.1 k/uL (0-0.7); Eosinophils % (A) 1 %; HCT 41.1 % (34.0-46.0); HGB 14.3 gm/dL (11.4-16.0); Lymphocytes # (A) 2.5 k/uL (1.0-4.8); Lymphocytes % (A) 28 %; MCH 32.3 pg (25.0-35.0); MCHC 34.9 g/dL (31.0-37.0); MCV 92.7 fL (80.0-100.0); Mean Platelet Volume 8.3; Monocytes # (A) 0.4 k/uL (0-1.0); Monocytes % (A) 5 %; Neutrophils # (A) 5.5 k/uL (1.3-7.7); Neutrophils % (A) 63 %; Platelet Count 260 k/uL (150-450); RBC 4.43 m/uL (3.80-5.40); RDW 12.2 % (11.5-15.5); WBC 8.7 k/uL (3.8-10.6)
--- NOTE | 2022-02-21 09:42 | XR ---
EXAMINATION TYPE: XR chest 2V DATE OF EXAM: 02/21/2022 9:39 AM COMPARISON: Chest radiographs from 01/30/2019. TECHNIQUE: XR chest 2V Frontal and lateral views of the chest. CLINICAL INDICATION:Female, 32 years old with history of Chest Pain; FINDINGS: Lungs/Pleura: There is no evidence of pleural effusion, focal consolidation, or pneumothorax. Pulmonary vascularity: Unremarkable. Heart/mediastinum: Cardiomediastinal silhouette is unremarkable. Musculoskeletal: No acute osseous pathology. IMPRESSION: No acute cardiopulmonary disease/process.
[2022-02-21 09:48] LABS: INR 1.1 (<1.2); Prothrombin Time 12.2 sec (9.0-12.0)
[2022-02-21 10:03] LABS: ALT 16 U/L (4-34); AST 19 U/L (14-36); African American GFR (CKD) >90 (>60 ml/min/1.73 sqM); Albumin 4.7 g/dL (3.5-5.0); Alkaline Phosphatase 104 U/L (38-126); Anion Gap 13 mmol/L; Blood Urea Nitrogen 11 mg/dL (7-17); Calcium 9.7 mg/dL (8.4-10.2); Carbon Dioxide 25 mmol/L (22-30); Chloride 102 mmol/L (98-107); Glucose 116 mg/dL (74-99); Lipase 174 U/L (23-300); Magnesium 1.9 mg/dL (1.6-2.3); Non-African American GFR(CKD) >90 (>60 ml/min/1.73 sqM); Potassium 3.5 mmol/L (3.5-5.1); Sodium 140 mmol/L (137-145); Total Bilirubin 0.7 mg/dL (0.2-1.3); Total Protein 7.3 g/dL (6.3-8.2)
--- NOTE | 2022-02-21 11:19 | CT ---
EXAMINATION TYPE: CT chest angio for PE CT DLP: 264.1 mGycm, Automated exposure control for dose reduction was used. DATE OF EXAM: 02/21/2022 11:05 AM COMPARISON: Chest radiograph from same day. CLINICAL INDICATION:Female, 32 years old with history of chest pain, sob; TECHNIQUE/CONTRAST: CTA scan of the thorax is performed with IV Contrast, patient injected with 100, wasted 30 mL of Isov ue 370, pulmonary embolism protocol. MIP images are created and reviewed. FINDINGS: Pulmonary Artery: Evaluation of the right upper lobe segmental and subsegmental is limited due to str eak artifact from the contrast bolus. There is no evidence for a filling defect within the pulmonary vasculature to suggest acute pulmonary embolism. The pulmonary artery is of normal size. Lungs/Pleura: Respiratory motion degrades examination. No evidence of focal consolidation, pleural ef fusion or pneumothorax. Airway: Large airways are patent. Heart: Heart is within normal limits for size.. Vasculature: No evidence of aortic aneurysm. Mediastinum: No gross evidence of adenopathy. Musculoskeletal: No acute osseous abnormalities Soft Tissues: Unremarkable. Lower neck: No significant findings. Upper Abdomen: No significant findings. IMPRESSION: No evidence of pulmonary embolism or acute thoracic process.
--- NOTE | 2022-02-21 11:26 | ED ---
Chest Pain HPI - General Chief Complaint: Chest Pain Stated Complaint: Chest Pain,SOB Time Seen by Provider: 02/21/22 09:09 Source: patient, EMS, RN notes reviewed Mode of arrival: EMS Limitations: no limitations - History of Present Illness Initial Comments: 32-year-old female presents emergency department for chief complaint of palpitation, chest tightness. Patient states that it started last day. Patient states that she had: 5 weeks ago. Patient states she still slight cough. Patient with some nausea without vomiting no prior cardiac disease. Patient denies any current headache or dizziness. Patient states is worse when she takes a deep breath or moves. Patient has a leg pain leg swelling no history DVT or PE. - Related Data Home Medications Medication Instructions Recorded Confirmed No Known Home Medications 02/21/22 02/21/22 Allergies Allergy/AdvReac Type Severity Reaction Status Date / Time Pertussis Vaccines Allergy Unknown Verified 02/21/22 10:14 Childhood hydrocodone [From Vicodin] AdvReac Nausea & Verified 02/21/22 10:14 Vomiting & Diarrhea Review of Systems ROS Statement: Those systems with pertinent positive or pertinent negative responses have been documented in the HPI. ROS Other: All systems not noted in ROS Statement are negative. EKG Findings - EKG Comments: EKG Findings:: EKG performed at 9:13 sinus rhythm with a rate of 76 CO 128 QRS 91 QTC is QTC 380 wants us for 12 there is inverted T-wave in V2 noted. 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 Date of last positivie culture/infection: 2007 MDRO Source:: left arm Past Surgical History: Adenoidectomy, Orthopedic Surgery, Tonsillectomy Additional Past Surgical History / Comment(s): EGD, ORIF left ankle/later remov al of hardware Past Anesthesia/Blood Transfusion Reactions: Motion Sickness Past Psychological History: Anxiety Smoking Status: Current every day smoker, Vaper Past Alcohol Use History: Occasional Past Drug Use History: Marijuana - Past Family History Mother Family Medical History: No Reported History General Exam Limitations: no limitations General appearance: alert, in no apparent distress Head exam: Present: atraumatic, normocephalic, normal inspection Eye exam: Present: normal appearance, PERRL, EOMI. Absent: scleral icterus, conjunctival injection, periorbital swelling ENT exam: Present: normal exam, normal oropharynx, mucous membranes moist Neck exam: Present: normal inspection, full ROM. Absent: tenderness, meningismus, lymphadenopathy Respiratory exam: Present: normal lung sounds bilaterally. Absent: respiratory distress, wheezes, rales, rhonchi, stridor Cardiovascular Exam: Present: regular rate, normal rhythm, normal heart sounds. Absent: systolic murmur, diastolic murmur, rubs, gallop, clicks GI/Abdominal exam: Present: soft, normal bowel sounds. Absent: distended, tenderness, guarding, rebound, rigid Course Vital Signs 02/21/22 02/21/22 02/21/22 09:05 09:11 09:21 Temperature 97.7 F Pulse Rate 86 92 Pulse Rate [ 82 Manager Meat ] Respiratory 18 16 Rate Blood Pressure 115/79 122/88 O2 Sat by Pulse 100 100 Oximetry Chest Pain [facility] 32-year-old female presented for palpitations chest wall pain. Patient for complaint EKG chest x-ray and CTA of the chest was performed rule out PE as patient had mildly elevated d-dimer. There is no PE. Patient has pupils chest wall pain consistent with discussed with gastritis palpitations. Patient was discharged in stable condition return parameters were discussed. Disposition Clinical Impression: Palpitations, Atypical chest pain Disposition: HOME SELF-CARE Condition: Stable Instructions (If sedation given, give patient instructions): Costochondritis (ED), Chest Pain (ED) Additional Instructions: Please return to the Emergency Department if symptoms worsen or any other concerns. Is patient prescribed a controlled substance at d/c from ED?: No Referrals: Ismael Rodríguez MD [Primary Care Provider] - 1-2 days Time of Disposition: 11:52
[2022-02-21 12:43] VITALS: BP 117/85; PULSE 64; RESP 18; TEMP 98.4
== END 2022-02-21 12:43 | disposition home or self-care (01) ==
LOC: EC 08:54
DX: R00.2 Palpitations (principal); F17.290 Nicotine dependence, other tobacco product, uncomplicated; Z88.7 Allergy status to serum and vaccine; Z88.8 Allergy status to other drugs, medicaments and biological substances
CPT/HCPCS: 36415; 93005; 85379; 80053; 83690; 83735; 84484; 85025; 85610; 85730; 71046; 71275; 99285; 96374; J1885; Q9967

== ENCOUNTER 2022-04-21 10:15 | Emergency (ER) | payer OTHER ==
[2022-04-21] MEDS ORDERED: SODIUM CHLORIDE 0.9% 1,000 ML IV STA (10:55)
[2022-04-21] MEDS ORDERED: METOCLOPRAMIDE 5 MG/ML 2 ML VIAL IVP STA (10:55)
[2022-04-21] MEDS ORDERED: diphenhydrAMINE 50 MG/ML 1 ML VIAL IVP STA (10:55)
[2022-04-21] MEDS ORDERED: ACETAMINOPHEN IV (For NPO) 1,000 MG in EMPTY BAG 1 BAG IVPB ONE (11:15)
[2022-04-21] MEDS ORDERED: PYRIDOXINE 100 MG/ML 1 ML VIAL IVP SCH (11:15)
[2022-04-21 11:22] LABS: Basophils % (A) 0 %; Eosinophils # (A) 0.2 k/uL (0-0.7); Eosinophils % (A) 2 %; HGB 14.2 gm/dL (11.4-16.0); Lymphocytes # (A) 1.6 k/uL (1.0-4.8); Lymphocytes % (A) 19 %; MCH 32.8 pg (25.0-35.0); MCHC 35.4 g/dL (31.0-37.0); MCV 92.7 fL (80.0-100.0); Mean Platelet Volume 7.7; Monocytes # (A) 0.6 k/uL (0-1.0); Monocytes % (A) 7 %; Neutrophils # (A) 6.2 k/uL (1.3-7.7); Neutrophils % (A) 71 %; Platelet Count 275 k/uL (150-450); RBC 4.32 m/uL (3.80-5.40); RDW 11.8 % (11.5-15.5); WBC 8.8 k/uL (3.8-10.6)
[2022-04-21 11:37] LABS: ALT 27 U/L (4-34); AST 24 U/L (14-36); African American GFR (CKD) >90 (>60 ml/min/1.73 sqM); Albumin 4.4 g/dL (3.5-5.0); Alkaline Phosphatase 76 U/L (38-126); Amylase 49 U/L (30-110); Anion Gap 7 mmol/L; Blood Urea Nitrogen 9 mg/dL (7-17); Calcium 9.1 mg/dL (8.4-10.2); Carbon Dioxide 24 mmol/L (22-30); Chloride 105 mmol/L (98-107); Glucose 82 mg/dL (74-99); Lipase 61 U/L (23-300); Non-African American GFR(CKD) >90 (>60 ml/min/1.73 sqM); Potassium 4.2 mmol/L (3.5-5.1); Sodium 136 mmol/L (137-145); Total Bilirubin 0.7 mg/dL (0.2-1.3); Total Protein 7.1 g/dL (6.3-8.2)
[2022-04-21 12:19] LABS: HCG,Quantitative Serum 29535.3 mIU/mL
--- NOTE | 2022-04-21 12:26 | ED ---
Nausea/Vomiting/Diarrhea HPI - General Chief complaint: Nausea/Vomiting/Diarrhea Stated complaint: Vaginal bleeding-6 weeks preg Time Seen by Provider: 04/21/22 10:31 Source: patient, family, RN notes reviewed Mode of arrival: ambulatory Limitations: no limitations - History of Present Illness Initial comments: His is a 32-year-old female who presents to the emergency department for nausea and vomiting. Patient states that she is approximately 6 weeks . These symptoms have been going on for approximately one month, and she states they have not been getting better. She has tried lujr-aot-vglmoga remedies such as rm and lemon with no relief. She does state that several years ago, she had a Victoria-Anders tear from all of the vomiting she was doing, and it scares her that this could happen with this . She did have a minor episode of throwing up blood last night, however this has since resolved. This is her second . She gave 4 years ago and had no problems with nausea or vomiting. Denies any vaginal bleeding or discharge and does not have any associated abdominal pain. She does not currently have an sheet rocker, states that she is having a difficult time trying to find one. Denies any fevers, chills, sore throat, cough, dyspnea, chest pain, palpitations, abdominal pain, diarrhea, back pain, or headaches. MD complaint: nausea, vomiting Onset/Timin -: month(s) Associated Abdominal Pain: No - Related Data Previous Rx's Medication Instructions Recorded Doxylamine Succinate/Vit B6 1 each PO Q8H PRN #20 tab 04/21/22 [Doxylamine-Pyridoxine 10-10 mg] Allergies Allergy/AdvReac Type Severity Reaction Status Date / Time Pertussis Vaccines Allergy Unknown Verified 04/21/22 10:21 Childhood hydrocodone [From Vicodin] AdvReac Nausea & Verified 04/21/22 10:21 Vomiting & Diarrhea Review of Systems ROS Statement: Those systems with pertinent positive or pertinent negative responses have been documented in the HPI. ROS Other: All systems not noted in ROS Statement are negative. 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 Date of last positivie culture/infection: 2008 MDRO Source:: left arm Past Surgical History: Adenoidectomy, Orthopedic Surgery, Tonsillectomy Additional Past Surgical History / Comment(s): EGD, ORIF left ankle/later removal of hardware Past Anesthesia/Blood Transfusion Reactions: Motion Sickness Past Psychological History: Anxiety Smoking Status: Current every day smoker, Vaper Past Alcohol Use History: Occasional Past Drug Use History: Marijuana - Past Family History Mother Family Medical History: No Reported History General Exam Limitations: no limitations General appearance: alert, in distress Head exam: Present: atraumatic, normocephalic, normal inspection Respiratory exam: Present: normal lung sounds bilaterally. Absent: respiratory distress, wheezes, rales, rhonchi, stridor Cardiovascular Exam: Present: regular rate, normal rhythm, normal heart sounds. Absent: systolic murmur, diastolic murmur, rubs, gallop, clicks GI/Abdominal exam: Present: hyperactive bowel sounds Neurological exam: Present: alert, oriented X3, CN II-XII intact Psychiatric exam: Present: normal affect, normal mood Skin exam: Present: warm, dry, intact, normal color. Absent: rash Course Vital Signs 04/21/22 04/21/22 10:19 13:57 Temperature 98 F 98.2 F Pulse Rate 73 78 Respiratory 16 18 Rate Blood Pressure 114/69 128/77 O2 Sat by Pulse 98 98 Oximetry Medical Decision Making - Medical Decision Making This is a 32-year-old female who presents to the emergency department for nausea and vomiting in . Lab work obtained and found to be nonactionable. Urinalysis negative for signs of infection. Patient was given IV fluids, Reglan, Benadryl, vitamin B6, and Ofirmev. She qualifies for Ofirmev as she is actively vomiting and she is and unable to take NSAIDs. She noted significant relief after IV fluids and medication. She was able to tolerate oral intake without any difficulty. Prescription for generic diclegis provided for any additional nausea and vomiting. Dosing instructions reviewed. Instru cted her to slowly advance her diet as tolerated and remain well-hydrated. Advised that she continue doing her best to become established with an sheet rocker and begin taking a vitamin if she hasn't done so already. Return precautions reviewed in depth, the patient is instructed to return to the emergency department with any new, worsening, or concerning symptoms. Patient verbalized understanding. This case was discussed in detail with the attending ED physician. Presentation, findings, and treatment plan discussed in detail as well. - Lab Data Result diagrams: 04/21/22 11:14 04/21/22 11:14 Lab Results 04/21/22 04/21/22 04/21/22 Range/Units 11:14 11:14 12:20 WBC 8.8 (3.8-10.6) k/uL RBC 4.32 (3.80-5.40) m/uL Hgb 14.2 (11.4-16.0) gm/dL Hct 40.0 (34.0-46.0) % MCV 92.7 (80.0-100.0) fL MCH 32.8 (25.0-35.0) pg MCHC 35.4 (31.0-37.0) g/dL RDW 11.8 (11.5-15.5) % Plt Count 275 (150-450) k/uL MPV 7.7 Neutrophils % 71 % Lymphocytes % 19 % Monocytes % 7 % Eosinophils % 2 % Basophils % 0 % Neutrophils # 6.2 (1.3-7.7) k/uL Lymphocytes # 1.6 (1.0-4.8) k/uL Monocytes # 0.6 (0-1.0) k/uL Eosinophils # 0.2 (0-0.7) k/uL Basophils # 0.0 (0-0.2) k/uL Sodium 136 L (137-145) mmol/L Potassium 4.2 (3.5-5.1) mmol/L Chloride 105 (98-107) mmol/L Carbon Dioxide 24 (22-30) mmol/L Anion Gap 7 mmol/L BUN 9 (7-17) mg/dL Creatinine 0.52 (0.52-1.04) mg/dL Est GFR (CKD-EPI)AfAm >90 (>60 ml/min/1.73 sqM) Est GFR (CKD-EPI)NonAf >90 (>60 ml/min/1.73 sqM) Glucose 82 (74-99) mg/dL Calcium 9.1 (8.4-10.2) mg/dL Total Bilirubin 0.7 (0.2-1.3) mg/dL AST 24 (14-36) U/L ALT 27 (4-34) U/L Alkaline Phosphatase 76 (38-126) U/L Total Protein 7.1 (6.3-8.2) g/dL Albumin 4.4 (3.5-5.0) g/dL Amylase 49 (30-110) U/L Lipase 61 (23-300) U/L HCG, Quant 58796.3 mIU/mL Urine Color Urine Appearance (Clear) Urine pH (5.0-8.0) Ur Specific [place] (1.001-1.035) Urine Protein (Negative) Urine Glucose (UA) (Negative) Urine Ketones (Negative) Urine Blood (Negative) Urine Nitrite (Negative) Urine Bilirubin (Negative) Urine Urobilinogen (<2.0) mg/dL Ur Leukocyte Esterase (Negative) Blood Type O Positive Blood Type Recheck O Pos Bld Type Recheck Status No 04/21/22 Range/Units 12:42 WBC (3.8-10.6) k/uL RBC (3.80-5.40) m/uL Hgb (11.4-16.0) gm/dL Hct (34.0-46.0) % MCV (80.0-100.0) fL MCH (25.0-35.0) pg MCHC (31.0-37.0) g/dL RDW (11.5-15.5) % Plt Count (150-450) k/uL MPV Neutrophils % % Lymphocytes % % Monocytes % % Eosinophils % % Basophils % % Neutrophils # (1.3-7.7) k/uL Lymphocytes # (1.0-4.8) k/uL Monocytes # (0-1.0) k/uL Eosinophils # (0-0.7) k/uL Basophils # (0-0.2) k/uL Sodium (137-145) mmol/L Potassium (3.5-5.1) mmol/L Chloride (98-107) mmol/L Carbon Dioxide (22-30) mmol/L Anion Gap mmol/L BUN (7-17) mg/dL Creatinine (0.52-1.04) mg/dL Est GFR (CKD-EPI)AfAm (>60 ml/min/1.73 sqM) Est GFR (CKD-EPI)NonAf (>60 ml/min/1.73 sqM) Glucose (74-99) mg/dL Calcium (8.4-10.2) mg/dL Total Bilirubin (0.2-1.3) mg/dL AST (14-36) U/L ALT (4-34) U/L Alkaline Phosphatase (38-126) U/L Total Protein (6.3-8.2) g/dL Albumin (3.5-5.0) g/dL Amylase (30-110) U/L Lipase (23-300) U/L HCG, Quant mIU/mL Urine Color Light Yellow Urine Appearance Clear (Clear) Urine pH 6.5 (5.0-8.0) Ur Specific [place] 1.011 (1.001-1.035) Urine Protein Negative (Negative) Urine Glucose (UA) Negative (Negative) Urine Ketones 2+ H (Negative) Urine Blood Negative (Negative) Urine Nitrite Negative (Negative) Urine Bilirubin Negative (Negative) Urine Urobilinogen <2.0 (<2.0) mg/dL Ur Leukocyte Esterase Negative (Negative) Blood Type Blood Type Recheck Bld Type Recheck Status Disposition Clinical Impression: Nausea and vomiting during Disposition: HOME SELF-CARE Instructions (If sedation given, give patient instructions): Nausea and Vomiting in (ED) Additional Instructions: Return to the emergency department with any new, worsening, or concerning symptoms. You can take the nausea medicine up to every 8 hours as needed. Make sure that you remain well-hydrated and slowly advance your diet as tolerated. Begin a vitamin if you are not already taking one. Continue to take Tylenol as needed for any pain and avoid ibuprofen and other iptr-pla-otfznsv anti-inflammatories. 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 Follow up with your primary care provider in 1-2 days. Prescriptions: Doxylamine Succinate/Vit B6 [Doxylamine-Pyridoxine 10-10 mg] 1 each PO Q8H PRN #20 tab PRN Reason: Nausea And Vomiting Is patient prescribed a controlled substance at d/c from ED?: No Referrals: Ismael Rodríguez MD [Primary Care Provider] - 1-2 days
[2022-04-21 12:55] LABS: Appearance,Urine Clear (Clear); Bilirubin,Urine Negative (Negative); Blood,Urine Negative (Negative); Color,Urine Light Yellow; Glucose,Urine (UA) Negative (Negative); Ketones,Urine 2+ (Negative); Leukocyte Esterase,Urine Negative (Negative); Nitrite,Urine Negative (Negative); PH, Urine 6.5 (5.0-8.0); Protein,Urine Negative (Negative); Specific Gravity,Urine 1.011 (1.001-1.035); Urobilinogen,Urine <2.0 mg/dL (<2.0)
[2022-04-21 13:58] VITALS: BP 128/77; PULSE 78; RESP 18; TEMP 98.2
== END 2022-04-21 13:57 | disposition home or self-care (01) ==
LOC: EC 10:15
DX: O21.9 Vomiting of pregnancy, unspecified (principal); K21.9 Gastro-esophageal reflux disease without esophagitis; F41.9 Anxiety disorder, unspecified; F17.200 Nicotine dependence, unspecified, uncomplicated; F12.90 Cannabis use, unspecified, uncomplicated; Z37.9 Outcome of delivery, unspecified; Z3A.01 Less than 8 weeks gestation of pregnancy; Z88.7 Allergy status to serum and vaccine; Z88.5 Allergy status to narcotic agent
CPT/HCPCS: 36415; 86900; 86901; 80053; 82150; 83690; 85025; 81003; 84702; 99284; 96365; 96375 ×3; 96361; J1200; J3415; J2765; J0131

== ENCOUNTER → 2022-08-10 | Outpatient (CLI) | payer BC, OTHER ==
[~2022-08-10] MED LIST changes: -LACTATED RINGERS 1,000 ML IV ONE; -LIDOCAINE 1% INJ 10MG/ML (20 ML MDV) ONE; +ONDANSETRON 4 MG/2 ML VIAL IVP STA; -PROPOFOL 10 MG/ML 20 ML VIAL IV ONE
[2022-08-11 00:50] LABS: Appearance,Urine Cloudy (Clear); Bacteria,Urine Moderate /hpf; Bilirubin,Urine Negative (Negative); Blood,Urine Negative (Negative); Color,Urine Yellow; Glucose,Urine (UA) Negative (Negative); Ketones,Urine 3+ (Negative); Leukocyte Esterase,Urine Small (Negative); Mucus,Urine Rare /hpf; Nitrite,Urine Negative (Negative); PH, Urine 5.5 (5.0-8.0); Protein,Urine Trace (Negative); RBC,Urine 2 /hpf (0-5); Specific Gravity,Urine 1.033 (1.001-1.035); Squamous Epithelial Cell,Urine 8 /hpf (0-4); Urobilinogen,Urine <2.0 mg/dL (<2.0); WBC,Urine 4 /hpf (0-5)
[2022-08-11 00:59] LABS: Basophils % (A) 0 %; Eosinophils % (A) 0 %; HCT 39.7 % (34.0-46.0); HGB 13.9 gm/dL (11.4-16.0); Lymphocytes # (A) 0.7 k/uL (1.0-4.8); Lymphocytes % (A) 4 %; MCH 32.9 pg (25.0-35.0); MCHC 34.9 g/dL (31.0-37.0); MCV 94.1 fL (80.0-100.0); Mean Platelet Volume 8.4; Monocytes # (A) 0.6 k/uL (0-1.0); Monocytes % (A) 3 %; Neutrophils # (A) 16.3 k/uL (1.3-7.7); Neutrophils % (A) 92 %; Platelet Count 263 k/uL (150-450); RBC 4.22 m/uL (3.80-5.40); RDW 13.5 % (11.5-15.5); WBC 17.8 k/uL (3.8-10.6)
[2022-08-11 02:48] VITALS: BP 129/76; PULSE 111; RESP 16; TEMP 98.2
--- NOTE | 2022-08-20 06:30 | P.MSEPDOC ---
Presenting Problems - Arrival Data Date of Arrival on Unit: 08/11/22 Time of Arrival on Unit: 22:40 Mode of Transport: Ambulatory - Complaint OB-Reason for Admission/Chief Complaint: Hyperemesis Comment: Patient arrived from home stating that she spoke with Dr. Haney earlier. regarding N/V and Dr. Haney told patient to go to [facility] triage if her N/V does not subside. Patient denies any leaking of fluid/bleeding. Patient states that she can feel baby. move. Medical History - Information : 2 Para: 1 - Gestational Age Gestational Age by AFTAB (wks/days): 22 Weeks and 2 Days Review of Systems - Review of Systems Constitutional: No problems Breast: No problems ENT: No problems Cardiovascular: No problems Respiratory: No problems Gastrointestinal: Diarrhea Genitourinary: No problems Musculoskeletal: No problems Neurological: No problems Skin: No problems Vital Signs - Temperature Temperature: 98.2 F Temperature Source: Temporal Artery Scan - Pulse Pulse Oximetery Pulse Rate: 111 Pulse Assessment Method: Pulse Oximetry - Respirations Respiratory Rate: 16 Oxygen Delivery Method: Room Air O2 Sat by Pulse Oximetry: 98 - Blood Pressure Right Arm Blood Pressure: 129/76 Blood Pressure Mean: 93 Blood Pressure Source: Automatic Cuff Medical Screen Scoring - Assessment - Baby A Baseline FHR: 150 Physician Notification - Physician Notified Physician Notified Date: 08/11/22 Physician Notified Time: 23:00 Physician: Leida Haney Order Received: Yes - Notification Comment Comment: Dr Haney returned call. Report of patient vomiting. since 1830, with vomiting noted since patient arrived on the floor. Orders receveid for. IV to be started, LR bolus, zofran 4mg IV, draw CBC and UA. Call Dr Haney with results. Maternal Triage Index - Non-Urgent/Priority 4 Non-Urgent Priority 4: Yes Criteria Met for Priority 4: Patient arrived from home stating that she spoke with Dr. Haney earlier. regarding N/V and Dr. Haney told patient to go to [facility] triage if her N/V does not subside. Patient denies any leaking of fluid/bleeding. Patient states that she can feel baby. move. Disposition - Disposition OB Disposition: Discharge to home Discharge Date: 08/11/22 Discharge Time: 01:14 I agree with the RN Medical Screening Exam: Yes Case reviewed; plan agreed upon as documented in EMR&OBIX.: Yes Diagnosis: VOMITING, UNSPECIFIED
== END | disposition home or self-care (01) ==
LOC: FBPOP 22:40
PROVIDERS: ATTEND Obstetrics & Gynecology
DX: O21.9 Vomiting of pregnancy, unspecified (principal); O99.332 Smoking (tobacco) complicating pregnancy, second trimester; F17.200 Nicotine dependence, unspecified, uncomplicated; Z3A.22 22 weeks gestation of pregnancy; Z88.7 Allergy status to serum and vaccine; Z88.5 Allergy status to narcotic agent
CPT/HCPCS: 99214; 96361; 96374; 81001; J2405; 85025; 96375

== ENCOUNTER 2022-12-18 05:34 | Inpatient (IN) | payer BC, OTHER ==
--- NOTE | 2022-12-17 14:41 | P.HPOB ---
History of Present Illness H&P Date: 12/17/22 Chief Complaint: Induction of labor, post-dates This is a 32 y.o. female, 2, para 1, with an estimated date of confinement of 12/13/2022, estimated gestational age of 40-5/7 weeks, who presents for induction of labor due to postdates. She is experiencing frequent contractions and pressure. Her has been complicated by HGSIL on her pap smears and she has done colposcopies without biopsies during her . Her latest ultrasound on 12/16/2022 showed an estimated weight of 8#12oz, greater than 90th percentile. She was counseled regarding potential risk of shoulder dystocia and declines section. She has also been seen by M during this for echo due to previous child born with transposition of great vessels. Echo was normal. labs: Hepatitis B surface antigen-neg RPR-NR Rubella-immune Blood type-O+ Antibody screen-neg Hemoglobin-13.1 HIV-NR [id number] 1 hr. GTT-100 GBS-neg OB Hx: . History of vaginal delivery at term, baby dx with transposition of great vessels after . Snow Groomer Hx: History of HSV, rare outbreaks, on suppression. Social Hx: . 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 Review of Systems Constitutional: Denies chills, Denies fever Eyes: denies blurred vision, denies pain Ears, nose, mouth and throat: Denies headache, Denies sore throat Cardiovascular: Denies chest pain, Denies shortness of breath Respiratory: Denies cough Gastrointestinal: Reports abdominal pain (irregular contractions) Genitourinary: Reports pelvic pain, Reports Musculoskeletal: Reports low back pain Musculoskeletal: bilateral: hip pain Integumentary: Denies pruritus, Denies rash Neurological: Denies numbness, Denies weakness Psychiatric: Reports anxiety, Reports depression 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 Date of last positivie culture/infection: 2007 MDRO Source:: left arm Past Surgical History: Adenoidectomy, Orthopedic Surgery, Tonsillectomy Additional Past Surgical History / Comment(s): EGD, ORIF left ankle/later removal of hardware Past Anesthesia/Blood Transfusion Reactions: Motion Sickness Past Psychological History: Anxiety, Depression, PTSD Smoking Status: Vaper (quit with ) Past Alcohol Use History: None Reported Past Drug Use History: Marijuana (quit 1st trimester) - Past Family History Mother Additional Family Medical History / Comment(s): Degenerative disc disease Son(s) Additional Family Medical History / Comment(s): Transposition of great vessels Medications and Allergies Home Medications Medication Instructions Recorded Confirmed Type Vit No.179/Iron/Folic 1 each PO 08/10/22 History [ Tablet] valACYclovir HCL [Valtrex] 500 mg PO DAILY 12/17/22 12/17/22 History Allergies Allergy/AdvReac Type Severity Reaction Status Date / Time Pertussis Vaccines Allergy Unknown Verified 08/10/22 22:47 Childhood hydrocodone [From Vicodin] AdvReac Nausea & Verified 08/10/22 22:47 Vomiting & Diarrhea Exam Osteopathic Statement: *. No significant issues noted on an osteopathic structural exam other than those noted in the History and Physical/Consult. HEENT: within normal limits Heart: regular rate and rhythm Lungs: clear to auscultation bilaterally Abdomen: , non-tender Cervix: 3 cm/60%/-3 heart tones: 140's by doppler Extremities: neg. Eli's Assessment and Plan (1) 40 weeks gestation of Status: Acute Code(s): Z3A.40 - 40 WEEKS GESTATION OF SNOMED Code(s): 56215620 (2) Post term over 40 weeks Status: Acute Code(s): O48.0 - POST-TERM SNOMED Code(s): 868339688 Plan: Proceed with oxytocin induction of labor. Expectant management. Epidural anesthesia if desired.
[2022-12-18] MEDS ORDERED: OXYTOCIN 30 UNITS/500 ML NS 30 UNIT in SALINE 1 500ML.BAG IV SCH (06:06)
[2022-12-18] MEDS ORDERED: LIDOCAINE 1% (10MG/ML) FOR IV START INTRADERMA PRN (06:06)
[2022-12-18] MEDS ORDERED: LIDOCAINE 0.5% (PF) 5 MG/ML (50 ML SDV) SQ PRN (06:06)
[2022-12-18] MEDS ORDERED: OXYTOCIN 10 UNIT/ML 1 ML VIAL IM PRN (06:06)
[2022-12-18] MEDS ORDERED: TERBUTALINE 1 MG/ML VIAL SQ PRN (06:06)
[2022-12-18] MEDS ORDERED: miSOPROStoL 200 MCG TAB PO PRN (06:06)
[2022-12-18] MEDS ORDERED: CARBOPROST TROMETHAMINE 250 MCG/ML 1 ML AMP IM PRN (06:06)
[2022-12-18] MEDS ORDERED: METHYLERGONOVINE 0.2 MG/ML 1 ML AMP IM PRN (06:06)
[2022-12-18] MEDS ORDERED: TRANEXAMIC 1,000 MG/100ML-NACL 1,000 MG in EMPTY BAG 1 BAG IV PRN (06:06)
[2022-12-18] MEDS: LACTATED RINGERS 1,000 ML IV SCH ×3 (06:09→17:05)
[2022-12-18 06:12] LABS: Basophils % (A) 0 %; Eosinophils # (A) 0.1 k/uL (0-0.7); Eosinophils % (A) 1 %; HCT 34.5 % (34.0-46.0); HGB 12.2 gm/dL (11.4-16.0); Lymphocytes # (A) 2.2 k/uL (1.0-4.8); Lymphocytes % (A) 14 %; MCH 34.1 pg (25.0-35.0); MCHC 35.5 g/dL (31.0-37.0); MCV 96.1 fL (80.0-100.0); Mean Platelet Volume 8.5; Monocytes # (A) 0.7 k/uL (0-1.0); Monocytes % (A) 4 %; Neutrophils # (A) 12.9 k/uL (1.3-7.7); Neutrophils % (A) 80 %; Platelet Count 259 k/uL (150-450); RBC 3.59 m/uL (3.80-5.40); RDW 14.1 % (11.5-15.5); WBC 16.1 k/uL (3.8-10.6)
[2022-12-18] MEDS ORDERED: SODIUM CHLORIDE 0.9% 100 ML BAG ONE (12:05)
[2022-12-18] MEDS ORDERED: KETOROLAC 15 MG/ML 1 ML VIAL ONE ×2 (12:05→19:59)
[2022-12-18] MEDS ORDERED: ROPIVACAINE 5 MG/ML 20 ML AMPULE ONE (12:05)
[2022-12-18] MEDS ORDERED: ONDANSETRON 4 MG/2 ML VIAL ONE ×2 (12:05→19:59)
[2022-12-18] MEDS ORDERED: fentaNYL (PF) 50 MCG/ML 5 ML AMP ONE (12:05)
[2022-12-18] MEDS ORDERED: CITRIC ACID-SODIUM CITRATE 15 ML CUP PO ONE (19:39)
[2022-12-18] MEDS ORDERED: MORPHINE SULFATE (PF) 0.3 MG/0.3 ML SYR ONE (19:59)
[2022-12-18] MEDS ORDERED: OXYTOCIN 30 UNITS/500 ML NS BAG IV ONE (19:59)
--- NOTE | 2022-12-18 20:48 | P.OP ---
Date of Procedure: 12/18/22 Preoperative Diagnosis: 1. Intrauterine at 40-5/7 weeks. 2. Failure to progress. 3. Maternal exhaustion. Postoperative Diagnosis: Same Procedure(s) Performed: Primary low transverse section Anesthesia: spinal (Duramorph) Surgeon: Leida Haney Accounts Receivable Coordinator #1: Zonia Crystal Estimated Blood Loss (ml): 700 Pathology: none sent Condition: stable Disposition: floor Indications for Procedure: This is a 32-year-old female 2 para 1 at 40-5/7 weeks who presented for induction of labor. She underwent oxytocin induction of labor and artificial rupture of membranes with clear fluid noted. She did receive epidural anesthesia. She reached a maximum of approximately 8-9 cm and felt a strong urge to push she was involuntarily pushing at this point. She did receive epidural boluses that did not help very much. Her cervix began to swell and caput was noted. Patient complained of exhaustion and wished to proceed with section. I have discussed the risks, benefits, and alternative therapies for the above- mentioned procedure and for both sedation/anesthesia as well as necessary blood products administration, if indicated, as they pertain to this patient. The patient has indicated her understanding and acceptance of the risks and procedures discussed. Operative Findings: A viable male is noted in the vertex presentation with scores of 9 at 1 minute and 9 at 5 minutes and weight of 8 lbs. 12 oz. Some caput was noted. Normal uterus tubes and ovaries are noted. Description of Procedure: The patient is taken to the operating room where she is placed in the dorsal supine position with leftward tilt after spinal Duramorph anesthesia is given. Her epidural was removed prior to starting the procedure since it was ineffective. She is prepped and draped in the normal sterile fashion. Skin was tested and found to be adequately anesthetized. A Pfannenstiel skin incision was made with a scalpel. A second knife was used to carry the incision down to the underlying layer of fascia. The fascia was nicked in the midline with a scalpel and then extended laterally bilaterally with Roach scissors. The anterior lip of the fascia was grasped with 2 Charley clamps and then dissected off the underlying rectus muscle in the midline with Roach scissors. The inferior aspect of the fascial incision was grasped with 2 Charley clamps and dis sected off the underlying rectus muscle and the midline with Roach scissors. Next the peritoneum layer was tented up with 2 hemostats and then entered sharply with the scalpel. The incision is extended superiorly and inferiorly with Metzenbaum scissors. Next a DeLee retractor is placed. The vesicouterine peritoneum is entered sharply with Metzenbaum scissors and extended laterally bilaterally with Metzenbaum scissors and then the bladder flap is pushed inferiorly. The lower uterine segment is incised in transverse fashion with the scalpel and then bluntly entered with a hemostat. Clear fluid is noted. The incision was then extended laterally bilaterally with 2 fingers. Next the 's head is delivered through the incision. Nose and mouth are bulb suctioned. The remainder of the is easily delivered and placed on mother's abdomen. Cord is clamped and cut. Infant is taken to warmer by nursing staff. Uterine fundus is gently massaged and placenta is delivered manually. Uterus is exteriorized and cleared of all clots and debris. Uterine incision is closed with 0 Vicryl suture in a running locked fashion. A second layer of 0 Vicryl suture is used in a running fashion for hemostasis. Once adequate hemostasis as assured, the vesicouterine peritoneum is reapproximated with 2-0 Vicryl suture in a running fashion. Posterior cul-de-sac is suctioned of all clots and debris. Uterus is returned to the abdomen. Incision is noted to be hemostatic. Peritoneal layer is closed with 0 Vicryl suture in a running fashion. Muscle layer is reapproximated with 0 Vicryl suture in interrupted fashion. Fascia layer is then closed with 0 PDS suture with 2 sutures meeting in the midline and the knots buried in either side and in the midline. The subcutaneous tissue was then closed with 2-0 Vicryl suture. Skin layer was then closed with kaley. All sponge and needle counts are correct. The patient is taken to recovery room in stable condition.
[2022-12-18] MEDS ORDERED: diphenhydrAMINE 25 MG CAP PO PRN (20:57)
[2022-12-18] MEDS ORDERED: ONDANSETRON 4 MG/2 ML VIAL IVP PRN (20:57)
[2022-12-18] MEDS ORDERED: diphenhydrAMINE 50 MG/ML 1 ML VIAL IVP PRN ×2 (20:57)
[2022-12-18] MEDS ORDERED: ZOLPIDEM 5 MG TAB PO PRN (20:57)
[2022-12-18] MEDS ORDERED: SIMETHICONE 80 MG CHEWABLE PO PRN (20:57)
[2022-12-18] MEDS ORDERED: ACETAMINOPHEN TAB 325 MG TAB PO PRN (20:57)
[2022-12-18] MEDS ORDERED: HYDROmorphone 1 MG/ML 1 ML SYRINGE IVP PRN (20:57)
[2022-12-18] MEDS ORDERED: NALOXONE 0.4 MG/ML 1 ML VIAL IV PRN (20:57)
[2022-12-18] MEDS ORDERED: METOCLOPRAMIDE 5 MG/ML 2 ML VIAL IVP PRN (20:57)
[2022-12-18] MEDS ORDERED: LANOLIN CREAM 5 GM TUBE TOPICAL PRN (20:57)
[2022-12-18] MEDS ORDERED: diphenhydrAMINE 50 MG CAP PO PRN (20:57)
[2022-12-18] MEDS ORDERED: HYDROmorphone 2 MG TAB PO PRN ×2 (20:57)
[2022-12-18] MEDS ORDERED: HYDROmorphone 0.5 MG/0.5 ML SYRINGE IVP PRN (20:57)
[2022-12-19] MEDS: ACETAMINOPHEN IV (For NPO) 1,000 MG in EMPTY BAG 1 BAG IVPB SCH ×2 (00:10→09:35)
[2022-12-19] MEDS: KETOROLAC 15 MG/ML 1 ML VIAL IVP SCH ×4 (04:27→18:21)
[2022-12-19] MEDS: IBUPROFEN 600 MG TAB PO SCH ×4 (05:26→20:51)
[2022-12-19 06:42] LABS: Basophils % (A) 0 %; Eosinophils % (A) 0 %; HCT 30.3 % (34.0-46.0); HGB 10.6 gm/dL (11.4-16.0); Lymphocytes # (A) 1.9 k/uL (1.0-4.8); Lymphocytes % (A) 9 %; MCH 33.8 pg (25.0-35.0); MCHC 34.8 g/dL (31.0-37.0); MCV 97.2 fL (80.0-100.0); Mean Platelet Volume 8.2; Monocytes # (A) 0.8 k/uL (0-1.0); Monocytes % (A) 4 %; Neutrophils # (A) 18.7 k/uL (1.3-7.7); Neutrophils % (A) 87 %; Platelet Count 233 k/uL (150-450); RBC 3.12 m/uL (3.80-5.40); RDW 13.8 % (11.5-15.5); WBC 21.6 k/uL (3.8-10.6)
--- NOTE | 2022-12-19 07:14 | P.PN ---
Progress Note - Text Date: 12/19/2022 Time: 07:01 The patient is status post section Vital signs stable VAS: 0-10 Patient has no complaints of pain. The patient incurred some minimal itching yesterday, this itching is now subsiding. Pain meds to be managed by service.
[2022-12-19] MEDS: SENNOSIDES-DOCUSATE SODIUM 1 EACH TAB PO SCH ×3 (08:14→20:51)
[2022-12-19] MEDS: ACETAMINOPHEN TAB 500 MG TAB PO SCH ×4 (08:14→18:20)
[2022-12-19] MEDS: PRENATAL VIT-IRON-FOLIC ACID 1 EACH TABLET PO SCH (08:14)
--- NOTE | 2022-12-19 08:51 | P.PNOBGPC ---
Subjective - Subjective Principal diagnosis: Status post primary section postoperative day #1 Interval history: Patient is doing well. She has ambulated. She is passing some flatus but no bowel movement yet. She has not urinated yet. She is working on breast- feeding. Patient reports: Reports appetite normal, Reports pain well controlled, Reports ambulating normally, Denies voiding normally [place]: doing well, nursing well Objective - Vital Signs Latest vital signs: Vital Signs Temp Pulse Resp BP Pulse Ox 12/19/22 04:00 98.4 F 92 16 95/57 95 12/19/22 00:00 80 16 93/50 96 12/18/22 23:00 77 16 94/55 97 12/18/22 22:30 73 16 100/56 97 12/18/22 22:00 73 16 102/56 96 12/18/22 21:45 75 16 93/51 96 12/18/22 21:30 78 16 86/49 95 12/18/22 21:15 97.9 F 79 16 91/50 97 12/18/22 21:00 97.9 F 76 16 98/51 97 Intake and Output 12/18/22 12/19/22 12/19/22 22:59 06:59 14:59 Output Total 375 1635 Balance -375 -1635 Output: Urine 375 1600 Uretheral (Anderson) 1600 Output, Quantitative 35 Blood Loss Other: # Voids 1 - Exam Extremities: Present: normal. Absent: tenderness Abdomen: Present: normal appearance, soft (Positive bowel sounds 4). Absent: distention, tenderness Incision: Present: normal, dry, intact. Absent: erythematous Uterus: Present: normal, firm. Absent: tenderness - Labs Labs: Abnormal Lab Results - Last 24 Hours (Table) 12/19/22 Range/Units 05:00 WBC 21.6 H (3.8-10.6) k/uL RBC 3.12 L (3.80-5.40) m/uL Hgb 10.6 L (11.4-16.0) gm/dL Hct 30.3 L (34.0-46.0) % Neutrophils # 18.7 H (1.3-7.7) k/uL Assessment and Plan Assessment: Status post primary low transverse section postoperative day #1 (1) 40 weeks gestation of Current Visit: No Status: Acute Code(s): Z3A.40 - 40 WEEKS GESTATION OF SNOMED Code(s): 85243742 (2) Post term over 40 weeks Current Visit: No Status: Acute Code(s): O48.0 - POST-TERM SNOMED Code(s): 000378877 Plan: Continue with postoperative and care today. Anticipate possible discharge home tomorrow.
[2022-12-19] MEDS: valACYclovir HCL 500 MG TAB PO SCH (10:05)
[2022-12-20] MEDS: KETOROLAC 15 MG/ML 1 ML VIAL IVP SCH
[2022-12-20] MEDS: ACETAMINOPHEN TAB 500 MG TAB PO SCH ×2 (01:02→06:51)
[2022-12-20] MEDS: IBUPROFEN 600 MG TAB PO SCH ×2 (04:00→09:09)
[2022-12-20 04:21] VITALS: RESP 16; TEMP 98.4
[2022-12-20 07:08] LABS: Basophils % (A) 0 %; Eosinophils # (A) 0.1 k/uL (0-0.7); Eosinophils % (A) 0 %; HCT 27.3 % (34.0-46.0); HGB 9.3 gm/dL (11.4-16.0); Lymphocytes # (A) 1.6 k/uL (1.0-4.8); Lymphocytes % (A) 12 %; MCH 33.6 pg (25.0-35.0); MCHC 34.1 g/dL (31.0-37.0); MCV 98.6 fL (80.0-100.0); Mean Platelet Volume 8.3; Monocytes # (A) 0.6 k/uL (0-1.0); Monocytes % (A) 5 %; Neutrophils # (A) 11.3 k/uL (1.3-7.7); Neutrophils % (A) 82 %; Platelet Count 216 k/uL (150-450); RBC 2.76 m/uL (3.80-5.40); WBC 13.8 k/uL (3.8-10.6)
[2022-12-20 08:42] VITALS: BP 90/60; PULSE 82
--- NOTE | 2022-12-20 08:55 | P.DS ---
Providers Date of admission: 12/18/22 05:34 Expected date of discharge: 12/20/22 Attending physician: Leida Haney Primary care physician: Stated None - Discharge Diagnosis(es) (1) 40 weeks gestation of Current Visit: No Status: Acute (2) Post term over 40 weeks Current Visit: No Status: Acute Hospital Course: This is a 32-year-old female 2 para 1 at 40-5/7 weeks who presented for induction of labor. She underwent oxytocin induction of labor and reached a maximum of about 8 cm. She then underwent a primary low transverse section for failure to progress on 12/18/2022. She delivered a viable male infant with scores of 9 at 1 minute and 9 at 5 minutes and weight of 8 lbs. 12 oz. Her postoperative and care have been uncomplicated. Her lochia is decreasing. She is passing flatus but no bowel movement yet. Pain is fairly well controlled with ibuprofen and Tylenol. She is breast- feeding. Vital signs are stable. Abdomen is soft and fundus is nontender. Bowel sounds are present 4. Incision is clean dry and intact with kaley in place. Extremities show negative Homans. Impression is status post primary low transverse section postoperative day #2. Plan is to discharge home today. Routine postoperative and instructions are given. She is advised to call the office if she has any further questions or concerns prior to her appointment time. She is advised to follow up in the office in approximately one week for a postoperative check. She will be given a prescription for ibuprofen. Procedures: Oxytocin induction of labor Primary low transverse section for delivery of a viable male infant on 12/18/2022 Patient Condition at Discharge: Stable Plan - Discharge Summary New Discharge Prescriptions: New Ibuprofen [Motrin] 600 mg PO Q6H #60 tab Acetaminophen Tab [Tylenol] 650 mg PO Q4HR PRN tab PRN Reason: Mild Pain Or Fever >= 100.5 Continue valACYclovir HCL [Valtrex] 500 mg PO DAILY Vit No.179/Iron/Folic [ Tablet] 1 each PO Discharge Medication List Vit No.179/Iron/Folic [ Tablet] 1 each PO 08/10/22 [History] valACYclovir HCL [Valtrex] 500 mg PO DAILY 12/17/22 [History] Acetaminophen Tab [Tylenol] 650 mg PO Q4HR PRN tab 12/20/22 [Rx] Ibuprofen [Motrin] 600 mg PO Q6H #60 tab 12/20/22 [Rx] Follow up Appointment(s)/Referral(s): Leida Haney DO [Doctor of Osteopathic Medicine] - 01/29/23 11:30 am (Post Op Appointment 12-24 at 10am) Activity/Diet/Wound Care/Special Instructions: Instructions 1. Do not begin any exercise program for 3 weeks. 2. Do not resume sexual relations for 3 weeks or longer if uncomfortable. 3. You may take tub baths or showers at any time. 4. You may use tampons if desired after 3 weeks. 5. Keep the area of episiotomy (stitches) clean and dry. 6. If you are not nursing, wear a good fitting, supportive bra during the day and limit fluid intake for at least 1 week to prevent breast engorgement. 7. Call the office, [phone], within the next week to make appointment for your 6 week checkup if it has not already been made. 8. Report any of the following occurrences to the doctor promptly: a. Heavy, excessive bleeding b. Chills, fever c. Burning or frequency of urination d. Pain or redness and breasts if nursing e. Increasing pain or swelling in episiotomy (stitches). In addition to the above instructions, the following additional should be followed: 1. No heavy lifting or straining (exercising) until after 6 week checkup. 2. Keep abdominal incision clean and dry: You may wear a dressing if more comfortable. 3. Make office appointment for 10 days after going home or as instructed by her doctor. Discharge Disposition: HOME SELF-CARE
[2022-12-20] MEDS: SENNOSIDES-DOCUSATE SODIUM 1 EACH TAB PO SCH (09:09)
[2022-12-20] MEDS: valACYclovir HCL 500 MG TAB PO SCH (10:34)
[2022-12-20] MEDS: PRENATAL VIT-IRON-FOLIC ACID 1 EACH TABLET PO SCH (10:34)
--- NOTE | 2022-12-24 15:09 | CDI ---
Documentation Clarification Form Date: 12/24/2022 02:43:29 PM From: Patricia La Admit Date: 12/18/2022 05:34:00 AM Patient Name: Ingrid Arredondo Visit Number: [id number] Discharge Date: 12/20/2022 02:00:00 PM ATTENTION: The Clinical Documentation Specialists (CDI) and [facility] Coding Staff appreciate your assistance in clarifying documentation. Please respond to the clarification below the line at the bottom and electronically sign. The CDI & [facility] Coding staff will review the response and follow-up if needed. Please note: Queries are made part of the Legal Health Record. If you have any questions, please contact the author of this message via ITS. Dr. Leida Haney Your patient has a hemoglobin/hematocrit level 12.2 and 34.5 on 12/18/22 and 9.3 and 27.3 on 12/20/22. Please clarify if there is an additional diagnosis and/or clinical significance related to these lab values. History/Risk Factors: patient is a 32 year old gravid 2 para 1 40-5/7 weeks Clinical indicators: patient presented to labor and delivery for induction of labor due to post dates. is complicated by HGSIL on her pap smear, estimated weight to be 8lbs 12oz, greater than 90th percentile. Patient has a history of HSV on Valtrex, fibromyalgia, GERD, anxiety, depression, PTSD, history of vaping and THC. Proceeded with IOL with Pitocin and AROM. Patient reached max of 8-9cm with strong urge to push involuntarily, cervical swelling with caput occurred along with maternal exhaustion. Patient elected for section. Intra-op blood loss: estimated 700ml Postop and course uncomplicated Lochia is decreasing Vitals: T: 97.9, Pulse: 78, Respirations: 16, BP: 86/49, Pulse ox 95 Treatment: Methergine 0.2mg 12/18 once PRN Discharge medication: , Valtrex, Tylenol, Motrin Is there an additional diagnosis and/or clinical significance related to the above lab result/information: [X ] Acute blood loss anemia [ ] No additional diagnosis/Not clinically significant [ ] Unable to determine [ ] Other, please specify MTDD
== END 2022-12-20 14:00 | disposition home or self-care (01) | DRG 787 ==
LOC: 4FBP 05:34
PROVIDERS: ADMIT Obstetrics & Gynecology; ATTEND Obstetrics & Gynecology
PROC: 3E033VJ Introduction of Other Hormone into Peripheral Vein, Percutaneous Approach (ICD-10-PCS; 2022-12-18)
PROC: 10907ZC Drainage of Amniotic Fluid, Therapeutic from Products of Conception, Via Natural or Artificial Opening (ICD-10-PCS; 2022-12-18)
PROC: 10D00Z1 Extraction of Products of Conception, Low, Open Approach (ICD-10-PCS; principal; 2022-12-18 20:25)
DX: O48.0 Post-term pregnancy (principal); D62 Acute posthemorrhagic anemia; O98.52 Other viral diseases complicating childbirth; O61.0 Failed medical induction of labor; O75.81 Maternal exhaustion complicating labor and delivery; O90.81 Anemia of the puerperium; O62.1 Secondary uterine inertia; F43.10 Post-traumatic stress disorder, unspecified; B00.9 Herpesviral infection, unspecified; M79.7 Fibromyalgia; F17.290 Nicotine dependence, other tobacco product, uncomplicated; F32.A Depression, unspecified; O99.892 Other specified diseases and conditions complicating childbirth; O36.63X0 Maternal care for excessive fetal growth, third trimester, not applicable or unspecified; O99.334 Smoking (tobacco) complicating childbirth; R87.613 High grade squamous intraepithelial lesion on cytologic smear of cervix (HGSIL); O99.344 Other mental disorders complicating childbirth; Z87.19 Personal history of other diseases of the digestive system; Z88.5 Allergy status to narcotic agent; Z88.7 Allergy status to serum and vaccine; Z86.14 Personal history of Methicillin resistant Staphylococcus aureus infection; Z79.899 Other long term (current) drug therapy; Z3A.40 40 weeks gestation of pregnancy; Z37.0 Single live birth
CPT/HCPCS: 85025; 86850; 86900; 86901

== ENCOUNTER → 2024-01-22 | Outpatient (CLI) | payer BC ==
--- NOTE | 2024-01-22 13:16 | US ---
EXAMINATION TYPE: US pelvis complete transvag DATE OF EXAM: 01/22/2024 COMPARISON: NONE CLINICAL INDICATION: Female, 34 years old with history of R10.9 UNSPECIFIED ABDOMINAL PAIN; Intermitt ent pelvic pain and irregular bleeding x couple months TECHNIQUE: . Transabdominal and transvaginal sonographic images of the pelvis were acquired. Date of LMP: 12/29/2023 EXAM MEASUREMENTS: Uterus: 9.2 x 4.3 x 5.8 cm Endometrial Stripe: 1.0 cm Right Ovary: 3.2 x 1.9 x 2.8 cm Left Ovary: 2.7 x 1.4 x 2.5 cm 1. Uterus: heterogeneous, multiple nabothian cysts 2. Endometrium: appears wnl 3. Right Ovary: wnl 4. Left Ovary: wnl 5. Bilateral Adnexa: wnl 6. Posterior cul-de-sac: wnl IMPRESSION: 1. No evidence for acute process. 2. Endometrium within normal limits for thickness. [facility], , 01/22/2024 1:14 PM
== END | disposition home or self-care (01) ==
LOC: RADUSWWP 11:25
PROVIDERS: ATTEND Family Medicine
DX: R10.9 Unspecified abdominal pain
CPT/HCPCS: 76830; 76856

== ENCOUNTER 2024-01-31 04:29 | Emergency (ER) | payer BC ==
[2024-01-31] MEDS: KETOROLAC 15 MG/ML 1 ML VIAL IM STA (05:04)
[2024-01-31] MEDS: ORPHENADRINE 30 MG/ML 2 ML VIAL IM STA (05:04)
[2024-01-31] MEDS: predniSONE 20 MG TAB PO STA (06:30)
--- NOTE | 2024-01-31 07:17 | ED ---
Back Pain HPI - General Chief Complaint: Back Pain/Injury Stated Complaint: Low Back Pain Time Seen by Provider: 01/31/24 04:40 Source: patient Limitations: no limitations - History of Present Illness MD Complaint: back pain Onset/Timin -: days(s) Similar Symptoms Previously: No Place: home Radiation: none Severity: severe Quality: aching Consistency: constant Improves With: immobilization Worsens With: movement Associated Symptoms: denies other symptoms - Related Data Home Medications Medication Instructions Recorded Confirmed Vit No.179/Iron/Folic 1 each PO 08/10/22 [ Tablet] valACYclovir HCL [Valtrex] 500 mg PO DAILY 12/17/22 12/17/22 Previous Rx's Medication Instructions Recorded Acetaminophen Tab [Tylenol] 650 mg PO Q4HR PRN tab 12/20/22 Ibuprofen [Motrin] 600 mg PO Q6H #60 tab 12/20/22 methocarbamoL [Robaxin-750] 1,500 mg PO TID #42 tab 01/31/24 predniSONE 60 mg PO DAILY #30 tab 01/31/24 Allergies Allergy/AdvReac Type Severity Reaction Status Date / Time Pertussis Vaccines Allergy Unknown Verified 08/10/22 22:47 Childhood hydrocodone [From Vicodin] AdvReac Nausea & Verified 08/10/22 22:47 Vomiting & Diarrhea Review of Systems ROS Statement: Those systems with pertinent positive or pertinent negative responses have been documented in the HPI. ROS Other: All systems not noted in ROS Statement are negative. 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 Date of last positivie culture/infection: 2007 MDRO Source:: left arm Past Surgical History: Adenoidectomy, Section, Orthopedic Surgery, Tonsillectomy Additional Past Surgical History / Comment(s): EGD, ORIF left ankle/later removal of hardware Past Anesthesia/Blood Transfusion Reactions: Motion Sickness Past Psychological History: Anxiety, Depression, PTSD Smoking Status: Former smoker, Vaper Past Alcohol Use History: None Reported Past Drug Use History: Marijuana - Past Family History Mother History Unknown: Yes Family Medical History: No Reported History Additional Family Medical History / Comment(s): Degenerative disc disease Son(s) History Unknown: Yes Additional Family Medical History / Comment(s): Transposition of great vessels General Exam Limitations: no limitations General appearance: alert, in no apparent distress Neck exam: Present: normal inspection, full ROM. Absent: tenderness, meningismus Respiratory exam: Present: normal lung sounds bilaterally. Absent: respiratory distress, wheezes, rales, rhonchi, stridor, accessory muscle use Cardiovascular Exam: Present: regular rate, normal rhythm, normal heart sounds. Absent: systolic murmur, diastolic murmur, rubs, gallop GI/Abdominal exam: Present: soft. Absent: distended, guarding, rigid, mass, pulsatile mass, hernia Back exam: Present: normal inspection, paraspinal tenderness. Absent: vertebral tenderness Neurological exam: Present: alert, reflexes normal. Absent: motor sensory deficit Skin exam: Present: warm, dry, intact, normal color. Absent: rash Course Vital Signs 01/31/24 01/31/24 01/31/24 04:30 06:00 07:12 Temperature 97.5 F L 97.6 F Pulse Rate 64 55 L 72 Respiratory 18 18 16 Rate Blood Pressure 108/76 101/62 96/67 O2 Sat by Pulse 98 97 100 Oximetry 01/31/24 08:23 Temperature 97.2 F L Pulse Rate 66 Respiratory 18 Rate Blood Pressure 114/81 O2 Sat by Pulse 99 Oximetry Medical Decision Making - Medical Decision Making Was pt. sent in by a medical professional or institution (, PA, NOODLE PRESS OPERATOR, urgent care, hospital, or skilled nursing...) When possible be specific @ -[No] Did you speak to anyone other than the patient for history (EMS, parent, family, police, friend...)? What history was obtained from this source @ -[No] Did you review nursing and triage notes (agree or disagree)? Why? @ -[I reviewed and agree with nursing and triage notes] Were old charts reviewed (outside hosp., previous admission, EMS record, old EKG, old radiological studies, urgent care reports/EKG's, skilled nursing records)? Report findings @ -[No old charts were reviewed] Differential Diagnosis (chest pain, altered mental status, abdominal pain women, abdominal pain men, vaginal bleeding, weakness, fever, dyspnea, syncope, headache, dizziness, GI bleed, back pain, seizure, CVA, palpatations, mental health, musculoskeletal)? @ -[Differential Back Pain: Strain, zoster, cauda equina syndrome, epidural abscess, vertebral osteomyelitis, discitis, fracture, subluxation, disc herniation, DJD, spinal stenosis, dissection, AAA, pancreatitis, peptic ulcer disease, pyelonephritis, kidney stone, this is not meant to be an all-inclusive list. EKG interpreted by me (3pts min.). @ -[As above] X-rays interpreted by me (1pt min.). @ -[None done] CT interpreted by me (1pt min.). @ -[None done] U/S interpreted by me (1pt. min.). @ -[None done] What testing was considered but not performed or refused? (CT, X-rays, U/S, labs)? Why? @ -[None] What meds were considered but not given or refused? Why? @ -[None] Did you discuss the management of the patient with other professionals (professionals i.e. , PA, NOODLE PRESS OPERATOR, lab, RT, psych nurse, licensed clinical social worker, blast furnace keeper, teacher, dairy quality assurance officer, case management associate)? Give summary @ -[No] Was smoking cessation discussed for >3mins.? @ -[No] Was critical care preformed (if so, how long)? @ -[No] Were there social determinants of health that impacted care today? How? (Homelessness, low income, unemployed, alcoholism, drug addiction, transportation, low edu. Level, literacy, decrease access to med. care, custodial, rehab)? @ -[No] Was there de-escalation of care discussed even if they declined (Discuss DNR or withdrawal of care, Hospice)? DNR status @ -[No] What co-morbidities impacted this encounter? (DM, HTN, Smoking, COPD, CAD, Cancer, CVA, ARF, Chemo, Hep., AIDS, mental health diagnosis, sleep apnea, morbid obesity)? @ -[None] Was patient admitted / discharged? Hospital course, mention meds given and route, prescriptions, significant lab abnormalities, going to OR and other pertinent info. @ -[This patient is 34-year-old woman here to have evaluation of low back pain. No signs or symptoms suggestive of cauda equina or cord compression. Patient had improvement with medication. Discussed appropriate further care and follow- up as well as return parameters Undiagnosed new problem with uncertain prognosis? @ -[No] Drug Therapy requiring intensive monitoring for toxicity (Heparin, Nitro, Insulin, Cardizem)? @ -[No] Were any procedures done? @ -[No] Diagnosis/symptom? @ -[Acute low back pain Acute, or Chronic, or Acute on Chronic? @ -[Acute Uncomplicated (without systemic symptoms) or Complicated (systemic symptoms)? @ -[Uncomplicated Side effects of treatment? @ -[No] Exacerbation, Progression, or Severe Exacerbation? @ -[No] Poses a threat to life or bodily function? How? (Chest pain, [place], [place], pneumonia, PE, COPD, DKA, ARF, appy, cholecystitis, CVA, Diverticulitis, Homicidal, Suicidal, threat to staff... and all critical care pts) @ -[No] Disposition Clinical Impression: Mechanical back pain Disposition: HOME SELF-CARE Condition: Good Instructions (If sedation given, give patient instructions): Acute Low Back Pain (ED) Prescriptions: predniSONE 60 mg PO DAILY #30 tab methocarbamoL [Robaxin-750] 1,500 mg PO TID #42 tab Is patient prescribed a controlled substance at d/c from ED?: No Referrals: Ismael Rodríguez MD [Primary Care Provider] - 1-2 days
[2024-01-31 08:25] VITALS: BP 114/81; PULSE 66; RESP 18; TEMP 97.2
== END 2024-01-31 08:25 | disposition home or self-care (01) ==
LOC: EC 04:29
CPT/HCPCS: 96372; 99283